=== PATIENT | male | born 1950 | race Caucasian/White ===

== ENCOUNTER 2017-07-04 13:16 | Emergency (ER) | payer MEDICARE ==
[2017-07-04 13:57] LABS: Hematocrit 40.9 % (42.0-52.0); Mean Platelet Volume 7.3 fL (7.4-10.4); White Blood Cell (WBC) Count 6.3 thou/uL (4.8-10.8)
[2017-07-04 14:15] LABS: ALT (SGPT) 21 U/L (8-55); AST (SGOT) 32 U/L (5-34); Alkaline Phosphatase 77 U/L (40-150); Anion Gap 10 mmol/L (10-20); BUN (Urea Nitrogen) 18 mg/dL (8.4-25.7); Bilirubin, Total 0.7 mg/dL (0.2-1.2); CK (CPK) 819 U/L (30-200); Calc. Creatinine Clearance 0 mL/min (70-130); Calcium 8.9 mg/dL (7.8-10.44); Carbon Dioxide 30 mmol/L (23-31); Chloride 99 mmol/L (98-107); Estimated GFR-MDRD Greater than 90; Globulin 2.9 g/dL (2.4-3.5); Protein, Total 6.2 g/dL (5.8-8.1)
[2017-07-04 14:19] LABS: Troponin I Less than 0.010 ng/mL (< 0.028)
[2017-07-04 14:27] LABS: Band 1 % (5-11); Neutrophil 66 % (42-75)
--- NOTE | 2017-07-04 15:35 | RAD ---
FRONTAL VIEW CHEST 07/04/17 INDICATION: Weakness. FINDINGS: There is elevation of the left hemidiaphragm. Linear densities at each lower lung zone indicate atele ctasis. The cardiomediastinal silhouette is accentuated by portable technique. Partially imaged hardw are is seen at the cervical spine/cervicothoracic junction. There is also partially imaged hardware o f the lumbar spine. IMPRESSION: Bilateral atelectasis. POS: [facility]
--- NOTE | 2017-07-25 14:59 | EKG ---
Test Reason : Blood Pressure : / mmHG Vent. Rate : 080 BPM Atrial Rate : 080 BPM P-R Int : 162 ms QRS Dur : 086 ms QT Int : 386 ms P-R-T Axes : 037 -07 -06 degrees QTc Int : 445 ms Normal sinus rhythm Nonspecific ST abnormality Abnormal ECG Confirmed by THONY REYES D.O. ([id number]), supervising editor trailer DAINA LENZ ([id number]) on 07/25/2017 2:59:01 PM Referred By: Confirmed By:THONY REYES D.O.
== END 2017-07-04 15:48 | disposition home or self-care (01) ==
LOC: ERS 13:16
DX: G89.18 Other acute postprocedural pain (principal); M79.641 Pain in right hand; Z86.73 Personal history of transient ischemic attack (TIA), and cerebral infarction without residual deficits; E78.00 Pure hypercholesterolemia, unspecified; F41.9 Anxiety disorder, unspecified; F31.9 Bipolar disorder, unspecified
CPT/HCPCS: 71010; 80053; 82553; 84484; 85025; 87040; 93005

== ENCOUNTER 2017-10-08 13:14 | Outpatient (CLI) | payer MEDICARE ==
--- NOTE | 2017-10-08 15:48 | RAD ---
Three views of the lumbar spine: Date: 10/08/17. COMPARISON: 06/03/16. HISTORY: Low back pain. FINDINGS: There is extensive postoperative hardware involving the lumbar spine which includes bilateral L2, L3, L4, L5, and S1 pedicle screws. Bilateral vertically oriented interlocking rods are seen associated with the L5 and S1 pedicle screws. There is a second set of vertically oriented interlocking rods as sociated with the L2, L3, and L4 pedicle screws bilaterally. There is an intervertebral disk device present at L3-4, L4-5, and L5-S1. The postoperative hardware does not appear significantly changed when compared to the 06/03/16 exam. There is severe anterior wedge compression fracture of L1 with pr ominent anterior loss of vertebral body height, stable. There is disk space narrowing, degenerative end plate change, and vacuum disk formation at L1-2. Stable multilevel intervertebral disk fusion at L2-3 through L5-S1 noted. An incompletely imaged spinal stimulating device is present with a generator on the right and leads e xtending into the region of the lumbar spine, not fully imaged. IMPRESSION: Extensive postoperative change throughout the lumbar spine. Stable severe anterior wedge compression fracture at L1 with prominent L1-2 degenerative change. POS: [facility]
== END 2017-10-08 13:15 | disposition home or self-care (01) ==
LOC: RAD 13:14
PROVIDERS: ATTEND Nurse Practitioner Family
DX: M54.5 Low back pain (principal); S32.010A Wedge compression fracture of first lumbar vertebra, initial encounter for closed fracture; M47.896 Other spondylosis, lumbar region
CPT/HCPCS: 72100

== ENCOUNTER 2017-10-19 09:40 | Outpatient (CLI) | payer MEDICARE ==
--- NOTE | 2017-10-19 16:00 | NM ---
WHOLE BODY BONE SCAN: 10/19/2017 HISTORY: Low back pain. COMPARISON: None. TECHNIQUE: Anterior and posterior whole body imaging obtained following the intravenous administration of 33 mil licuries of technetium 99m labeled MDP. FINDINGS: Areas of photopenia noted at the level of the bilateral knees, suggesting arthroplasties. Degenerati ve type changes overly the right foot and ankle. There is increased radiotracer activity in the region of the distal right radius, which may represent prior fracture. There is physiologic activity within the kidneys and the urinary bladder. There are ill defined areas of increased radiotracer activity within the lumbar spine. Radiographs o f the lumbar spine, performed 10/08/2017, demonstrated extensive severe degenerative change and multi level postoperative change within the lumbar spine. There is a focal area of increased radiotracer activity at the thoracolumbar junction, which correlat es with a prominent anterior wedge compression fracture, seen on the 10/08/2017 radiographs. This fr acture is not significantly changed when compared to a CT, performed 07/14/2016. There is a vague ar ea of increased radiotracer activity within the mid thoracic spine, in the T7-T8 region, nonspecific. There is a focus of increased radiotracer activity seen posteriorly, on the right, overlying the faustina on of the right 6th rib. IMPRESSION: 1. Radiotracer activity within the lumbar spine, suggesting a combination of a remote fracture and p ostoperative/degenerative change. 2. Focus of radiotracer activity overlies the mid thoracic spine. There is also a nonspecific focus of radiotracer activity overlying a posterior right rib/scapula. Recommend CT examination of the chest, with the patient's right arm down, to further evaluate the are a of radiotracer activity within the mid thoracic spine and overlying a posterior right rib. CODE T POS: [facility]
== END 2017-10-19 09:41 | disposition home or self-care (01) ==
LOC: NM 09:40
PROVIDERS: ATTEND Nurse Practitioner Family
DX: M54.5 Low back pain (principal); Z98.890 Other specified postprocedural states; M47.896 Other spondylosis, lumbar region
CPT/HCPCS: 78306; A9503

== ENCOUNTER 2017-10-27 09:33 | Observation (INO) | payer MEDICARE, OTHER ==
[2017-10-27 10:04] LABS: #Eosinphils 0.1 thou/uL (0.0-0.7); #Lymphocytes 2.2 thou/uL (1.20-3.40); #Monocytes 0.8 thou/uL (0.11-0.59); #Neutrophils 4.4 thou/uL (1.40-6.50); %Basophils 0.5 % (0.0-1.0); %Eosinophils 0.7 % (0.0-10.0); %Monocytes 10.9 % (0.0-10.0); %Neutrophils 58.8 % (42.0-75.0); Hemoglobin 15.2 g/dL (14.0-18.0); Mean Corpuscular HGB CONC 31.1 g/dL (32.0-36.0); Mean Corpuscular Hemoglobin 28.7 pg (27.0-31.0); Mean Corpuscular Volume 92.3 fl (80.0-94.0); Mean Platelet Volume 7.4 fL (7.4-10.4); Platelet Count 167 thou/uL (130-400); RBC Distribution Width 13.4 % (11.5-14.5); Red Blood Cell (RBC) Count 5.31 mill/uL (4.70-6.10); White Blood Cell (WBC) Count 7.5 thou/uL (4.8-10.8)
[2017-10-27 10:34] LABS: ALT (SGPT) 32 U/L (8-55); AST (SGOT) 23 U/L (5-34); Albumin 4.2 g/dL (3.4-4.8); Alkaline Phosphatase 100 U/L (40-150); Anion Gap 12 mmol/L (10-20); BUN (Urea Nitrogen) 18 mg/dL (8.4-25.7); Bilirubin, Total 0.9 mg/dL (0.2-1.2); CK (CPK) 47 U/L (30-200); Calc. Creatinine Clearance 0 mL/min (70-130); Calcium 9.9 mg/dL (7.8-10.44); Carbon Dioxide 31 mmol/L (23-31); Chloride 100 mmol/L (98-107); Estimated GFR-MDRD 88; Globulin 2.7 g/dL (2.4-3.5); Glucose 116 mg/dL (80-115); Lipase 19 U/L (8-78); Potassium 4.5 mmol/L (3.5-5.1); Protein, Total 6.9 g/dL (5.8-8.1); Sodium 138 mmol/L (136-145)
[2017-10-27 10:35] LABS: CKMB 1.6 ng/mL (0-6.6); Troponin I Less than 0.010 ng/mL (< 0.028)
--- NOTE | 2017-10-27 10:53 | RAD ---
FRONTAL VIEW CHEST: INDICATIONS: Chest pain. COMPARISON: 07/04/2017 FINDINGS: There is a mild prominence of the right hilar region. The cardiac silhouette is normal in size. Ext rinsic artifacts limit detail. An electronic device overlies the thoracic spine. The chest is otherwise similar to 07/04/2017. IMPRESSION: Mild prominence of the right hilum. This could relate to accentuated vasculature. Recommend followu p with a dedicated two view chest for continued assessment. POS: [facility]
--- NOTE | 2017-10-27 12:09 | CT ---
CT CHEST WITH CONTRAST: HISTORY: Abnormal appearance of bone scan. Low back pain. COMPARISON: Bone scan from 10/19/2017. TECHNIQUE: Multiple contiguous axial images were obtained in a CT of the chest with contrast. Coronal reformats were performed. FINDINGS: There is a nonexpansile area of sclerosis in the right lateral sixth rib. This likely corresponds to the bone scan abnormality. This is nonspecific and could represent a healing rib fracture. No abno rmality is seen in the right scapula. The heart is normal in size without focal cardiac abnormality. No hilar or mediastinal lymphadenopat hy is seen. Atelectasis is seen in the left lung base. No pneumothorax or pleural effusion is seen. No suspicio us pulmonary mass is present. Degenerative changes and post surgical changes are seen in the spine. A spinal stimulation device is seen in the mid thoracic spine. There is diffuse fatty infiltration of the liver with fatty sparing adjacent to the gallbladder. The other visualized subdiaphragmatic structures are unremarkable. IMPRESSION: 1. The abnormality on the bone scan represents a sclerotic, nonspecific focus in the right sixth rib . Recommended a follow-up exam in six months to ensure stability and evaluate for resolution of a po ssible healing rib fracture. 2. Fatty liver. POS: [facility]
[2017-10-27] MEDS ORDERED: Famotidine 20 MG TAB ONE (13:07)
--- NOTE | 2017-10-27 13:20 | HP ---
DATE OF ADMISSION: 10/27/2017 REASON FOR ADMISSION: Chest pain. HISTORY OF PRESENT ILLNESS: This is a pleasant 67-year-old gentleman with a history of chronic back pain, hypertension, and anxiety, presents with a several day history of chest pain. This waxed and w aned over the last several days. He denies any associated shortness of breath with that or radiation to his arms and jaw. He did usually take nitroglycerin for that with relief of symptoms; however, shawna rizo did not have any nitro. Therefore, he had to come to the hospital. He does have a history of norm al catheterization by the patient's description [address] Diez. PAST MEDICAL HISTORY: 1. Anxiety disorder. 2. Chronic back pain. 3. Depression. 4. History of normal catheterization years ago. 5. History of hemorrhoids, scoped by Dr. Santillan in 2014. 6. Osteoarthritis. 7. Allergic rhinitis. PAST SURGICAL HISTORY: History of back surgery years ago and history of back stimulator. ALLERGIES: MORPHINE, LYRICA and COUGH MEDS. MEDICATIONS: 1. Isosorbide 30 mg every day. 2. Eszopiclone 30 mg every night. 3. Diazepam 10 mg every day p.r.n. 4. Phenergan p.r.n. 5. Fentanyl patch 50 mcg every 3 days. 6. Morphine IR 30 mg q.i.d. 7. Dorzolamide 20 mg at bedtime. FAMILY HISTORY: Noncontributory. SOCIAL HISTORY: Quit smoking several years ago, he did only smoke for 3 years. Does not drink alcoh ol. REVIEW OF SYSTEMS: GENERAL: No weight gain or loss, no weakness or fatigue, no fever or chills. HE ENT: No diplopia, amaurosis fugax, tinnitus, sore throat or hoarseness. CARDIOVASCULAR: See histor y of present illness. PULMONARY: No PE, cough, or hemoptysis. GASTROINTESTINAL: No GI bleed, cons tipation, diarrhea. GENITOURINARY: No dysuria, nocturia, oliguria or polyuria. ENDOCRINE: No poly phagia, polydipsia or heat or cold intolerance. MUSCULOSKELETAL: Admits to arthralgias. No lupus o r myopathy. NEUROLOGIC: No history of TIA or seizure. All systems are negative. PHYSICAL EXAMINATION: GENERAL: Pleasant gentleman who appears in no acute distress. VITAL SIGNS: Stable. HEENT: PERRLA. Sclerae not icteric with no arcus senilis or xanthelasma. NECK: Supple with no increased JVP or carotid bruit. Carotid had good upstroke, no thyromegaly. COR: Regular rate and rhythm. CHEST: Symmetrical. Clear to auscultation and percussion. ABDOMEN: Soft, nontender with normoactive bowel sounds. There is no bruit or organomegaly. EXTREMITIES: No edema or cyanosis. He had palpable pedal pulses. SKIN: There is no evidence of ulcers, lesion, or rash. NEUROLOGIC: He is awake, alert, and oriented to person, place, and time. IMAGING DATA: His cardiac enzymes normal. EKG was hard to interpret secondary to back stimulator. ASSESSMENT: 1. Chest pain. 2. Chronic back pain. 3. History of back surgery. 4. Depression. 5. Anxiety. 6. Multiple medical problems. PLAN: The patient will be admitted where we will keep n.p.o. after midnight. [facility] in consultation for further testing. The patient verbalized understanding. All questions answered to satisfaction. This is SPENCER Omalley dictating for Jonny Yeboah M.D.
[2017-10-27 13:48] LABS: Troponin I Less than 0.010 ng/mL (< 0.028)
[2017-10-27] MEDS ORDERED: Nitroglycerin 0.4 MG TAB (25 Tab Bottle) SL PRN (14:42)
[2017-10-27] MEDS ORDERED: Acetaminophen 325 MG TAB PO PRN ×2 (14:45→20:35)
[2017-10-27] MEDS ORDERED: Ondansetron ODT 4 MG TAB SL PRN (14:45)
[2017-10-27] MEDS ORDERED: Ondansetron HCl/PF 4 MG/2 ML Vial IVP PRN (14:45)
[2017-10-27] MEDS ORDERED: Mag-Al 1200 mg/1200 mg/30 ML UDCUP PO SCH (14:45)
[2017-10-27] MEDS ORDERED: ISOVUE-370 76%-LOCM 1 ML ONE (14:46)
[2017-10-27 17:11] LABS: Troponin I Less than 0.010 ng/mL (< 0.028)
[2017-10-27] MEDS ORDERED: Zolpidem Tartrate 5 MG TAB PO PRN (17:40)
[2017-10-27] MEDS ORDERED: Melatonin 3 MG TAB PO PRN (17:41)
[2017-10-27] MEDS ORDERED: Morphine IR Tab 15 MG TAB PO PRN (17:43)
[2017-10-27] MEDS ORDERED: Sucralfate 1 GM TAB PO SCH (21:00)
--- NOTE | 2017-10-28 02:00 | CON ---
DATE OF CONSULTATION: 10/27/2017 INDICATION FOR CONSULTATION: A 67-year-old gentleman with a history of chest pain in the past. He h as undergone two previous cardiac catheterizations was in 2007 and 2011 or 2012 and was told he had n ormal coronaries. This was performed by Dr. Diez at [facility]. He has had multiple problems with GI reflux in the past. He describes the pain recently as having very sharp s tabbing chest pains which were very intense, radiating up to the back of his neck. He said this morn ing they were much worse. He came to the emergency room after he has taken aspirin and nitroglycerin . His pain had actually resolved. He has lost some weight in the past, but now has gained some of t his back. He has been told he has significant reflux and has been on medications for this. It sound s as if this may be some esophageal problem more than a cardiac problem if he has had a recent cardia c catheterization that was unremarkable. Certainly in his age having a normal cast 3 years ago, speedy d not speak as far as having coronary artery disease, especially since he has had similar symptoms in the past, has been worked up and has not been found to have any significant coronary artery disease. He has not had a recent stress test and this may be something that we can think about, we should al so perform stress testing to rule out evidence for underlying ischemia. His EKG was unremarkable. T here was no evidence of ischemia on the EKG now and his cardiac enzymes are negative. PAST MEDICAL HISTORY: Significant for degenerative joint disease, multiple back surgeries, neck surg eries. He has had multiple joint surgeries. He has had total knee replacements bilaterally, right s houlder surgery, bilateral thumb and wrist surgeries. He has RSD. He has had a history of right mali st wall cyst removal. He has Peyronie's disease for which now he has prosthesis. He has sleep apnea , but does not wear a mask. SOCIAL HISTORY: He is . No alcohol or tobacco abuse at this time. FAMILY HISTORY: Noncontributory. MEDICATIONS PRIOR TO ADMISSION: Included Carafate, albuterol, Dexilant, morphine tablet, Celexa, Salud ium, melatonin and Imdur. ALLERGIES: He is allergic to pregabalin. REVIEW OF SYSTEMS: He complains of dyspepsia, shortness of breath. He wears glasses, has decreased hearing. He has multiple joint problems. Otherwise, review of systems is unremarkable except what w as noted in the history of present illness. This is a 12-point review of systems. PHYSICAL EXAMINATION: GENERAL: Reveals a well-developed, well-nourished gentleman. VITAL SIGNS: Blood pressure 140/89, heart rate is 60 and regular. He is afebrile, respiratory rate 20. HEENT: Shows head to be normocephalic, atraumatic. Carotid pulses are present. There were no bruit s. There is no JVD. The thyroid is not enlarged. Oral mucosa was pink and moist. CHEST: Clear to auscultation without rales, rhonchi or wheezing. CARDIOVASCULAR: Exam reveals a regular rate and rhythm, normal S1, S2. There is no S3, S4. There w ere no significant murmurs, heaves, thrills, bruits or rubs. ABDOMEN: Soft and nontender with positive bowel sounds. No organomegaly or masses are noted. Femor al pulses are present. EXTREMITIES: Show no clubbing, cyanosis or edema. He does have some wasting of the muscles of the l eft hand which was noted both in the thenar or hypothenar eminence. Otherwise, I do not see any sign ificant edema. Pedal pulses are present. NEUROLOGIC: The patient appears to be relatively intact except for continued pain. EKG is unremarkable for any acute problems. He has normal sinus rhythm. LABORATORY DATA: Shows cardiac enzymes to be negative. Blood sugar is 116, potassium is 4.5, creati nine 0.87. Hemoglobin is 15.2. IMPRESSION: A 67-year-old gentleman with chest pain, which is somewhat atypical. He describes as be ing sharp, stabbing pain. He has had 2 cardiac catheterizations in the past, both which are unremark able according to the patient. We will try to obtain those records from Dr. Diez's office. Mikhail w yanely just advise him to have a stress testing as a more definitive evaluation, but this can be perfor med with nuclear medicine to rule out evidence of underlying ischemia. If there are any significant changes, then we would suggest a repeat cardiac catheterization despite a normal catheterization 3 ye ars ago. Otherwise, we would continue his present medications. We will be more than happy to follow the patient with you throughout his hospital course.
[2017-10-28] MEDS ORDERED: Diazepam 5 MG TAB PO PRN (03:17)
[2017-10-28] MEDS ORDERED: Acetaminophen 325 MG TAB PO PRN (08:02)
[2017-10-28] MEDS ORDERED: Aspirin 325 MG TAB PO SCH (09:00)
[2017-10-28] MEDS ORDERED: Pantoprazole 40 MG VIAL IVP SCH (09:00)
[2017-10-28] MEDS ORDERED: Sucralfate 1 GM TAB PO SCH (09:00)
[2017-10-28] MEDS ORDERED: Regadenoson 0.4 MG/5 ML SYRINGE ONE (11:05)
--- NOTE | 2017-10-28 11:06 | PDOC.CTH ---
Cardiology Progress Note - Subjective The pt seen and examined. No overnight events. No cardiac complaints. Stress test was done this AM and the result is pending at this time. - Objective Vital Signs Temp Pulse Resp BP BP Pulse Ox 10/28/17 08:00 98.2 F 58 L 16 10/28/17 07:25 98.2 F 58 L 16 134/85 92 L 10/28/17 03:12 97.8 F 76 28 H 127/97 H 94 L 10/27/17 23:43 116/86 Weight 186 lb 4.8 oz 10/27/17 10/28/17 10/29/17 06:59 06:59 06:59 Intake Total 600 Balance 600 - Physical Examination General/Neuro: alert & oriented x3 Neck: no JVD present Lungs: CTA Heart: RRR Abdomen: soft Extremities: other: (No edema) - Telemetry Telemetry Rhythm: SR - Labs Result Diagrams: 10/27/17 09:55 10/27/17 09:55 Troponin/CKMB CK-MB (CK-2) 1.6 ng/mL (0-6.6) 10/27/17 09:55 Troponin I Less than 0.010 ng/mL (< 0.028) 10/27/17 16:39 - Assessment/Plan 1. CP - stable; Stress test was done this AM and the result is pending at this time; on ASA 325mg daily; cont. monitor on tele 2. GERD - stable with Protonix 40mg IV BID; possible EGD tomorrow per the pt. 3. Sleep Apnea 4. Chronic back pain with stimulator - stable 5. Anxiety/depression - on PRN med; managed by PCP MAR reviewed Review of Systems - Review of Systems Constitutional: reports: no symptoms reported EENTM: reports: no symptoms reported Respiratory: reports: no symptoms reported Cardiac (ROS): reports: no symptoms reported ABD/GI: reports: no symptoms reported : reports: no symptoms reported
[2017-10-28 12:24] VITALS: BP 128/84; TEMP 97.8
--- NOTE | 2017-10-28 13:14 | NM ---
RADIONUCLIDE STRESS AND REST MYOCARDIAL PERFUSION SCAN WITH CT ATTENUATION CORRECTION AND SPECT IMAGI NG LEFT VENTRICULAR WALL MOTION EVALUATION AND EJECTION FRACTION: HISTORY: Chest pain. FINDINGS: Lexiscan protocol was used. There was homogeneous uptake of radiotracer throughout the left ventricu lar myocardium. No focal perfusion defect or reversibility. QGS analysis of gated SPECT images show no focal wall motion abnormalities. Left ventricular ejection fraction is calculated at 65%. IMPRESSION: Normal myocardial perfusion scan. Normal left ventricular ejection fraction. POS: [facility]
--- NOTE | 2017-10-29 14:28 | DIS ---
DATE OF ADMISSION: 10/27/2017 DATE OF DISCHARGE: 10/28/2017 CHIEF COMPLAINT ON ADMISSION: Chest pain. History and physical have previously been dictated, so I will resume from there with hospital course. HOSPITAL COURSE: The patient was placed on telemetry bed where serial cardiac enzymes were pursued. He was kept n.p.o. in case he may need to go to the cardiac cath lab radiology technologist. Cardiology was consulted concerning h is situation. Dr. Mendez saw the patient in consultation, ordered a Cardiolite stress test, which init ially showed artifact from spinal stimulator, but otherwise indeterminate images of ischemia, sinus b radycardia was noted, so we are waiting on the nuclear medicine interpretation of this. Over the nex t 24 hours, he felt much better. He was alert. He had a weekend episode that he thought may have be en set up by [employer]. His cardiac enzymes had returned negative. His exam is unremarkable. It was felt to be atypical chest pain, probably severe GERD with intractable esophagitis. All of that being secondary to chronic pain, but we were ruling out the cardiac ischemia, and the physician practice administrator sa w him on the day of discharge. By then, we received a normal myocardial perfusion scan, such that eir opinion also was that he could be discharged that the chest pain was noncardiac. He is jut ozzy nue to take daily aspirin, continue on the Protonix, and we will do seek an EGD on an outpatient [facility] s to further define the etiology of his substernal chest discomfort. It is felt he might also have s leep apnea, and he has known chronic back pain with a pain stimulator. The patient is discharged in stable condition. DIAGNOSES AT THE TIME OF DISCHARGE: 1. Chest pain, probably severe reflux esophagitis. 2. Chronic back pain with pain stimulator placed. 3. Sleep apnea. 4. Anxiety/depression. The time required to review the chart, examining the patient, answering the patient and his 's qu estions completely, then prepare the chart for discharge including writing the prescriptions for the Protonix, agrees to take the aspirin daily, and we will get a GI consultation for EGD as soon as poss ible, and thus changed the Protonix to Dexilant 60 mg b.i.d. He was already taking something like th at once a day and obviously has been ineffective, the time required to reconcile all his medications and complete the previous task came to 30 minutes.
--- NOTE | 2017-10-31 21:29 | EKG ---
Test Reason : Blood Pressure : / mmHG Vent. Rate : 081 BPM Atrial Rate : 040 BPM P-R Int : 000 ms QRS Dur : 074 ms QT Int : 392 ms P-R-T Axes : 000 039 065 degrees QTc Int : 455 ms Accelerated Junctional rhythm ST elevation, consider early repolarization, pericarditis, or injury Abnormal ECG Artifact from stimulator Confirmed by JEANCARLOS HAN, JUAN JOSÉ ([id number]), supervising editor trailer DAINA LENZ ([id number]) on 10/31/2017 9:29:31 PM Referred By: Confirmed By:JUAN JOSÉ ARSHAD MD
--- NOTE | 2017-11-23 15:14 | STRESS ---
Acquisition Time: 2017-10-28 09:16:03 Total Exercise Time: 00:01:00 Test Indications: CHEST PAIN Medications: Protocol: LEXISCAN Max HR: 086 BPM 55% of Pred: 155 BPM Max BP: 148/090 mmHG Max Work Load: 1.0 METS RESTING ECG: SINUS BRADYCARDIA AT 57 BPM SYMPTOMS: DYSPNEA NORMAL BP RESPONSE ECTOPY: NONE ECG STRESS: NO SIGNIFICANT CHANGES INTERPRETATION: INDETERMINATE ECG/AWAIT NUCLEAR IMAGES FOR DEFINITIVE DIAGNOSIS COMMENTS: ARTIFACT FROM SPINAL STIMULATOR Confirmed by PATITO GALINDO ELLEN ([id number]) on 11/23/2017 3:14:09 PM Referred By: MD Timothy IZAGUIRRE Confirmed By:AAMIR GALINDO PA-C
== END 2017-10-28 14:20 | disposition home or self-care (01) ==
LOC: ERS 09:33 → 2SW 12:16 → INTOOBSV 12:16
PROVIDERS: ADMIT Specialist; ATTEND Specialist
DX: Z88.8 Allergy status to other drugs, medicaments and biological substances; M19.90 Unspecified osteoarthritis, unspecified site; Z96.653 Presence of artificial knee joint, bilateral; G47.30 Sleep apnea, unspecified; Z98.890 Other specified postprocedural states; K21.9 Gastro-esophageal reflux disease without esophagitis; Z79.891 Long term (current) use of opiate analgesic; I10 Essential (primary) hypertension; R07.9 Chest pain, unspecified; N48.6 Induration penis plastica; Z79.899 Other long term (current) drug therapy; F41.9 Anxiety disorder, unspecified; F32.9 Major depressive disorder, single episode, unspecified; G90.50 Complex regional pain syndrome I, unspecified
CPT/HCPCS: 71045; 71260; 78452; 80053; 82550; 82553; 82565; 83690; 84484 ×2; 85025; 93005; 93017; 94760; 96374; 99285; A9500; G0378; 36415; A4216; C9113; J2785

== ENCOUNTER 2017-10-30 03:31 | Inpatient (IN) | payer MEDICARE ==
[2017-10-30 04:24] LABS: #Eosinphils 0.1 thou/uL (0.0-0.7); #Monocytes 0.8 thou/uL (0.11-0.59); #Neutrophils 10.7 thou/uL (1.40-6.50); %Basophils 0.2 % (0.0-1.0); %Eosinophils 0.6 % (0.0-10.0); %Lymphocytes 7.5 % (21.0-51.0); %Monocytes 6.7 % (0.0-10.0); Hemoglobin 14.4 g/dL (14.0-18.0); Mean Corpuscular Hemoglobin 29.3 pg (27.0-31.0); Mean Corpuscular Volume 88.7 fl (80.0-94.0); Mean Platelet Volume 6.9 fL (7.4-10.4); Platelet Count 137 thou/uL (130-400); RBC Distribution Width 13.2 % (11.5-14.5); Red Blood Cell (RBC) Count 4.93 mill/uL (4.70-6.10); White Blood Cell (WBC) Count 12.6 thou/uL (4.8-10.8)
[2017-10-30 04:41] LABS: Bilirubin Negative (Negative); Blood, Urine Negative (Negative); Clarity CLEAR (Clear); Glucose, Urine (Dipstick) Negative (Negative); Leukocyte Negative (Negative); Nitrite Negative (Negative); Protein, Urine (Dipstick) Negative (Neg-Trace); Specific Gravity, Urine 1.015 (1.002-1.036); pH, Urine 7.5 (5.0-9.0)
[2017-10-30 04:43] LABS: ALT (SGPT) 34 U/L (8-55); AST (SGOT) 26 U/L (5-34); Albumin 3.4 g/dL (3.4-4.8); Alkaline Phosphatase 87 U/L (40-150); Anion Gap 12 mmol/L (10-20); BUN (Urea Nitrogen) 17 mg/dL (8.4-25.7); Bilirubin, Total 1.4 mg/dL (0.2-1.2); Calc. Creatinine Clearance 0 mL/min (70-130); Calcium 7.7 mg/dL (7.8-10.44); Carbon Dioxide 26 mmol/L (23-31); Chloride 101 mmol/L (98-107); Estimated GFR-MDRD Greater than 90; Globulin 2.2 g/dL (2.4-3.5); Glucose 87 mg/dL (80-115); Lipase 13 U/L (8-78); Potassium 3.6 mmol/L (3.5-5.1); Protein, Total 5.6 g/dL (5.8-8.1); Sodium 135 mmol/L (136-145)
[2017-10-30] MEDS ORDERED: Ketorolac Tromethamine 30 MG/ML VIAL ONE (05:03)
[2017-10-30 05:04] LABS: CKMB 1.6 ng/mL (0-6.6); Troponin I Less than 0.010 ng/mL (< 0.028)
[2017-10-30] MEDS ORDERED: Ondansetron HCl/PF 4 MG/2 ML Vial ONE (05:06)
[2017-10-30] MEDS ORDERED: Pantoprazole 40 MG VIAL ONE (05:13)
[2017-10-30] MEDS ORDERED: Fleet Enema 133 ML BOT PR SCH (05:15)
--- NOTE | 2017-10-30 08:06 | RAD ---
CHEST 1 VIEW ABDOMEN 2 VIEWS: Date: 10/30/17 HISTORY: Abdominal pain. Nausea and vomiting. FINDINGS: Cardiac silhouette and pulmonary vasculature are unremarkable. Patchy infiltrates are present at the lung bases, left greater than right. There is no lobar consolidation or evidence of free subdiaphragm atic gas. Postoperative changes of the cervical spine are partially visualized. Dorsal column stimula tor leads overlie the thoracic spine. A large amount of stool is apparent throughout the colon and rectum. No differential air fluid levels or evidence of free subdiaphragmatic gas. Postoperative changes lumbar spine. Dorsal column stimulat or leads ascend to the thoracic spine. IMPRESSION: 1. Constipation. 2. Left lung base infiltrate. Clinical correlation regarding other signs and symptoms of left basila r pneumonitis is required. POS: [facility]
[2017-10-30] MEDS ORDERED: Vancomycin HCl 1.5 GM in Sodium Chloride 0.9% 250 ML 300 ML IVPB SCH (08:30)
--- NOTE | 2017-10-30 09:24 | CT ---
PRELIMINARY REPORT/[facility]/EMERGENTY AFTER-HOURS PROCEDURE CT Abdomen and Pelvis With Intravenous Contrast CLINICAL HISTORY: 67 years old, male; Signs and symptoms; Nausea and vomiting; Additional info: M67 presents to the ed via ems with C/O n/v, since 1999 last night. Ems reports giving pt 700 ml ns and 8 mg zofran. Pt paul es fever, chills, or diarrhea. He reports constipation, lbm x4 days ago. He reports last year he had a similar event and lost over 40 pounds. Pt see's [address]. Tyler (gi). HX TIA, acid reflux. TECHNIQUE: Axial computed tomography images of the abdomen and pelvis with intravenous contrast. COMPARISON: No relevant prior studies available. FINDINGS: Lung bases: Mild basilar air space disease bilaterally left slightly greater than right. Followup. ABDOMEN: Liver: Severe fatty infiltration of the liver. Fatty infiltration of the liver with areas of fatty sp aring. Gallbladder and bile ducts: Possible gallstones Pancreas: Unremarkable. Spleen: -Small accessory spleen is present. Adrenals: Unremarkable. No mass. Kidneys and ureters: Unremarkable. No solid mass. No hydronephrosis. Stomach and bowel: -Large amount of stool throughout the large bowel. Appendix: -The appendix is normal. PELVIS: Bladder: Unremarkable. No mass. Reproductive: Penile implant ABDOMEN and PELVIS: Intraperitoneal space: No free fluid within the pelvis or within the dependent portions of the perito neum. No free air. Bones/joints: Operative changes in the lumbar spine including surgical plate and pedicle screws No ac eri fracture. No dislocation. Soft tissues: Unremarkable. Vasculature: Unremarkable. No abdominal aortic aneurysm. Lymph nodes: Unremarkable. No enlarged lymph nodes. Other findings: No acute intra-abdominal process. No inflammatory process. No obstruction. IMPRESSION: 1. No acute intra-abdominal process. No inflammatory process. No obstruction. 2. Severe fatty infiltration of the liver. 3. -The appendix is normal. 4. -Large amount of stool throughout the large bowel. 5. Mild basilar air space disease bilaterally left slightly greater than right. Followup. Likely atelectasis. Correlate. 6. Fatty infiltration of the liver with areas of fatty sparing. Thank you for allowing us to participate in the care of your patient. Dictated and Authenticated by: Kelvin Morales MD 10/30/2017 7:26 AM Central Time ([place] & [place]) FINAL REPORT CT ABDOMEN AND PELVIS WITH IV AND ORAL CONTRAST: DATE: 10/30/17. TIME: Performed on an emergency basis at 0644 hours. HISTORY: Abdominal pain. Nausea and vomiting. COMPARISON: 11/12/15. FINDINGS: Findings agree with the preliminary report from [facility]. No evidence of bowel obstruction. Hepatosteatosis is confirmed. Patchy bibasilar lung infiltrates are present. Clinical correlation regarding other signs and symptoms of bibasilar pneumonitis is required. POS: [facility]
[2017-10-30] MEDS ORDERED: Cefepime 2 GM/10 ML SYR ONE (10:34)
[2017-10-30] MEDS ORDERED: Ondansetron ODT 4 MG TAB SL PRN (11:43)
[2017-10-30] MEDS ORDERED: Acetaminophen 325 MG TAB PO PRN ×2 (11:43→11:57)
[2017-10-30] MEDS ORDERED: Ondansetron HCl/PF 4 MG/2 ML Vial IVP PRN ×2 (11:43→11:55)
[2017-10-30 11:53] VITALS: BMI 29.8
[2017-10-30] MEDS: Sodium Chloride 0.9% 1,000 ML IV SCH (13:02)
[2017-10-30] MEDS: cefTRIAXone\\ROCEPHIN 1 GM, Syringe 0.4 ML in Sterile Water 9.6 ML SLOW IVP SCH (13:50)
[2017-10-30] MEDS ORDERED: ISOVUE-370 76%-LOCM 1 ML ONE (14:24)
[2017-10-30] MEDS ORDERED: Iopamidol 370 76% 50 ML VIAL FS ONE (14:24)
[2017-10-30] MEDS: Albuterol Sulfate 2.5 mg/3 ml Neb NEB SCH ×3 (15:34→21:41)
[2017-10-31] MEDS: Sodium Chloride 0.9% 1,000 ML IV SCH (01:17)
[2017-10-31] MEDS: Albuterol Sulfate 2.5 mg/3 ml Neb NEB SCH ×6 (01:51→22:15)
[2017-10-31 05:18] LABS: #Eosinphils 0.1 thou/uL (0.0-0.7); #Lymphocytes 1.3 thou/uL (1.20-3.40); #Monocytes 0.8 thou/uL (0.11-0.59); %Basophils 0.1 % (0.0-1.0); %Lymphocytes 16.2 % (21.0-51.0); %Monocytes 10.3 % (0.0-10.0); %Neutrophils 72.5 % (42.0-75.0); Hemoglobin 13.3 g/dL (14.0-18.0); Mean Corpuscular HGB CONC 32.7 g/dL (32.0-36.0); Mean Corpuscular Hemoglobin 29.5 pg (27.0-31.0); Mean Corpuscular Volume 90.2 fl (80.0-94.0); Mean Platelet Volume 7.3 fL (7.4-10.4); Platelet Count 123 thou/uL (130-400); RBC Distribution Width 13.2 % (11.5-14.5); Red Blood Cell (RBC) Count 4.51 mill/uL (4.70-6.10); White Blood Cell (WBC) Count 8.2 thou/uL (4.8-10.8)
[2017-10-31 05:33] LABS: ALT (SGPT) 25 U/L (8-55); AST (SGOT) 18 U/L (5-34); Albumin 3.2 g/dL (3.4-4.8); Alkaline Phosphatase 76 U/L (40-150); Anion Gap 8 mmol/L (10-20); BUN (Urea Nitrogen) 8 mg/dL (8.4-25.7); Bilirubin, Total 1.2 mg/dL (0.2-1.2); Calc. Creatinine Clearance 120 mL/min (70-130); Calcium 8.3 mg/dL (7.8-10.44); Carbon Dioxide 28 mmol/L (23-31); Chloride 107 mmol/L (98-107); Estimated GFR-MDRD Greater than 90; Globulin 2.1 g/dL (2.4-3.5); Glucose 96 mg/dL (80-115); Potassium 3.7 mmol/L (3.5-5.1); Protein, Total 5.3 g/dL (5.8-8.1); Sodium 139 mmol/L (136-145)
--- NOTE | 2017-10-31 08:02 | RAD ---
CHEST 1 VIEW: Date: 10/31/17 HISTORY: Pneumonia. Follow-up. COMPARISON: 10/30/17. FINDINGS: Cardiac silhouette is magnified by projection. Pulmonary vasculature is upper limits of normal. Media stinum is midline with dorsal column stimulator leads. Infiltrate at the left base has progressed somewhat. Patchy infiltrate with linear atelectatic compon ent at the right base has developed. Upper lobes are clear. alarm security or surveillance monitor leads overlie the chest. IMPRESSION: Interval worsening of bibasilar infiltrates. POS: [facility]
[2017-10-31] MEDS ORDERED: Morphine ER 30 MG TAB PO PRN (08:18)
[2017-10-31] MEDS ORDERED: Calcium Carbonate 500 MG ChewTAB PO PRN (08:22)
--- NOTE | 2017-10-31 08:22 | PRG ---
DATE OF SERVICE: 10/31/2017 SUBJECTIVE: The patient did not have a good night. His back was hurting. His home medications were not resumed. He states he is not coughing as much and he just now started drinking liquids this mor ayesha. PHYSICAL EXAMINATION: GENERAL: Upon evaluation, he is awake, alert, and oriented to person, place and time. VITAL SIGNS: His blood pressure is 114/70, pulse 60, respirations 18. He is afebrile. NECK: Supple with no increased JVP or carotid bruit. Carotid had good upstroke with no thyromegaly. COR: Regular rate and rhythm. CHEST: Symmetrical. Few bibasilar crackles. ABDOMEN: Soft, nontender with normoactive bowel sounds. No bruit or organomegaly. EXTREMITIES: No edema or cyanosis. Palpable pedal pulses. SKIN: There is no evidence of ulceration, lesion, or rash. NEUROLOGIC: He is awake, alert, and oriented to person, place, and time. LABORATORY DATA: His white blood cell is 8.2. His H&H is 13.3 and 40.7. His platelet count is 123. X-RAY FINDINGS: His chest x-ray is pending. ASSESSMENT: 1. Hospital-acquired pneumonia. 2. Chronic back pain with back stimulator, on morphine. 3. Recent history of noncardiac chest pain. 4. Anxiety. 5. Depression. PLAN: We will resume the patient's home medications. We will cut his IV fluids down to KVO. We timbo l continue the same current medication. I have also encouraged the patient to get out of bed today a nd sit in the chair. Hopefully, the patient will be able to go home in the next 1-2 days. The patie nt verbalized understanding. All questions answered to satisfaction. This is SPENCER Omalley dictating for Dr. Jonny Yeboah.
[2017-10-31] MEDS ORDERED: Zolpidem Tartrate 5 MG TAB PO PRN (08:28)
[2017-10-31] MEDS ORDERED: Melatonin 3 MG TAB PO PRN (08:29)
[2017-10-31] MEDS ORDERED: VORTIOXETINE HYDROBROMIDE 20 MG PO SCH (09:00)
[2017-10-31] MEDS: Sucralfate 1 GM/10 ML UDCUP PO SCH ×2 (09:06→21:01)
[2017-10-31] MEDS: Docusate 100 MG CAP PO SCH ×2 (09:06→21:01)
[2017-10-31] MEDS: Citalopram 20 MG TAB PO SCH (09:06)
[2017-10-31] MEDS: Morphine IR Tab 15 MG TAB PO PRN (09:50)
[2017-10-31] MEDS: cefTRIAXone\\ROCEPHIN 1 GM, Syringe 0.4 ML in Sterile Water 9.6 ML SLOW IVP SCH (14:01)
--- NOTE | 2017-10-31 19:54 | EKG ---
Test Reason : Blood Pressure : / mmHG Vent. Rate : 107 BPM Atrial Rate : 107 BPM P-R Int : 172 ms QRS Dur : 086 ms QT Int : 350 ms P-R-T Axes : 053 003 017 degrees QTc Int : 467 ms Sinus tachycardia Possible Left atrial enlargement Nonspecific ST abnormality Abnormal ECG Confirmed by THONY REYES D.O. ([id number]), development editor DAINA LENZ ([id number] on 10/31/2017 7:54:25 PM Referred By: Confirmed By:THONY REYES D.O.
[2017-10-31] MEDS: Senokot 8.6 MG TAB PO SCH (21:01)
[2017-11-01] MEDS: Albuterol Sulfate 2.5 mg/3 ml Neb NEB SCH ×6 (02:18→22:17)
[2017-11-01] MEDS: Citalopram 20 MG TAB PO SCH (08:44)
[2017-11-01] MEDS: Sucralfate 1 GM/10 ML UDCUP PO SCH ×2 (08:44→22:06)
[2017-11-01] MEDS: Sodium Chloride 0.9% 1,000 ML IV SCH ×2 (08:45→22:08)
[2017-11-01] MEDS: Docusate 100 MG CAP PO SCH ×2 (08:45→20:09)
[2017-11-01] MEDS ORDERED: guaiFENesin ER 600 MG TAB PO SCH (11:00)
--- NOTE | 2017-11-01 11:19 | HP ---
REASON FOR ADMISSION: Nausea, vomiting, and shortness of breath. HISTORY OF PRESENT ILLNESS: This is a 67-year-old gentleman with history of chronic back pain, on mo rphine, and also history of back stimulator, was just in the hospital roughly 2 weeks ago at that [facility] e he presented with chest pain. He was seen by Cardiology and a stress test was obtained, which was unremarkable. He was felt like his chest pain was noncardiac in nature and he was later sent home. He presents now with a 2-day history of increasing shortness of breath, cough, and generalized weakne ss. He has also been having some nausea and vomiting. He presented to the emergency room where he w as found to be tachypneic on evaluation, he was placed on oxygen at 2 liters. Also, he had abdomen a nd pelvis CT scan and was found to have left lower pneumonia and constipation. He was admitted to [facility] for pneumonia for further treatment. PAST MEDICAL HISTORY: 1. Chronic back pain, on morphine, and history of back stimulator. 2. History of angiogram roughly 3 years ago, at that time, it was normal by Dr. Diez. He also had a recent stress test that was normal. 3. Anxiety disorder. 4. Depression. 5. Hemorrhoids. 6. Osteoarthritis. 7. Allergic rhinitis. PAST SURGICAL HISTORY: He has history of back surgery and back stimulator. ALLERGIES: MORPHINE, LYRICA, and COUGH MEDICATIONS. MEDICATIONS: Unknown. FAMILY HISTORY: Noncontributory. SOCIAL HISTORY: He quit smoking several years ago. He only smoked for 3 years. He does not drink a lcohol. REVIEW OF SYSTEMS: GENERAL: Admits to weakness, fatigue, no fever or chills. HEENT: No diplopia or amaurosis fugax, tinnitus, sore throat or hoarseness. CARDIOVASCULAR: No chest, arm, or back pain. PULMONARY: See history of present illness. GASTROINTESTINAL: See history of present illness. GENITOURINARY: No dysuria, nocturia, oliguria, polyuria. ENDOCRINE: No polyphagia, polydipsia or heat or cold intolerance. MUSCULOSKELETAL: Admits to arthralgia. No lupus or myopathy. NEUROLOGIC: No history of TIA or seizure. All systems are negative. PHYSICAL EXAMINATION: GENERAL: This is a pleasant gentleman, who appears to be in acute distress. He is on oxygen. His v ital signs are stable. NECK: Supple with no increased JVP or carotid bruit. Carotid had good upstroke with no thyromegaly. COR: Regular rate and rhythm. CHEST: Symmetrical. Clear to auscultation and percussion upper lobes, bibasilar crackles lower lobe s. ABDOMEN: Soft, nontender with normoactive bowel sounds. No bruit or organomegaly. EXTREMITIES: No edema or cyanosis. Palpable pedal pulses. SKIN: There is no evidence of ulceration lesion, or rash. NEUROLOGIC: He is awake, alert, and oriented to person, place, and time. LABORATORY DATA: His white blood cell 12.6, H&H is 14.4 and 43.7 and, platelet count is 137. His so dium is 135. CT of the abdomen and pelvis as numerated above. ASSESSMENT: 1. Pneumonia. 2. History of back pain with back stimulator. 3. History of normal catheterization. 4. Constipation. 5. Anxiety. 6. Depression. PLAN: 1. The patient will be admitted with IV fluids. 2. We will begin antibiotic. 3. We will resume his medications once we know. 4. We will give him of her choice. 5. We will follow up with CBC, CMP, and chest x-ray in the morning. DAVION Omalley-C dictating for Jonny Yeboah M.D.
--- NOTE | 2017-11-01 12:38 | RAD ---
2 VIEW CHEST: Date: 11/01/17 COMPARISON: Frontal view chest from previous day. INDICATION: Pain, left shoulder pain. FINDINGS: Linear density at left lower lung zone is present, which may be related to volume loss. The right jonatan g is clear. There is electronic device overlying the thoracic spinal column again seen. Prior bibasil ar opacities have decreased. Chest is otherwise similar in appearance. IMPRESSION: Mild linear density left lower lung zone indicates atelectasis. Remainder of bibasilar opacities have improved. POS: BERTH
[2017-11-01] MEDS: cefTRIAXone\\ROCEPHIN 1 GM, Syringe 0.4 ML in Sterile Water 9.6 ML SLOW IVP SCH (13:34)
[2017-11-01] MEDS: Morphine IR Tab 15 MG TAB PO PRN ×2 (13:34→20:07)
--- NOTE | 2017-11-01 13:59 | PRG ---
This is DAVION Omalley-Maria Fernanda, dictating for Jonny Yeboah M.D. DATE OF SERVICE: 11/01/2017 SUBJECTIVE: The patient had a decent night. Unfortunately, his chest x-ray is not improved. Pain m edication was written yesterday; however, the patient was very upset as no one gave him any of his pa in medication despite him asking for his pain medicine. Therefore, he took his own morphine that he had in his room. PHYSICAL EXAMINATION: GENERAL: Upon evaluation, he is awake, alert, and oriented to person, place and time. VITAL SIGNS: Blood pressure is 127/90, pulse 70, respiration 20, he is afebrile. NECK: Supple with no increased JVP or carotid bruit. Carotid had good upstroke with no thyromegaly. COR: Regular rate and rhythm. CHEST: Bibasilar crackles. ABDOMEN: Soft and nontender with normoactive bowel sounds. No bruit or organomegaly. EXTREMITIES: No edema or cyanosis. Palpable pedal pulses. SKIN: There is no evidence of ulcer lesion, or rash. NEUROLOGIC: He is awake, alert, and oriented to person, place, and time. LABORATORY DATA: Chest x-ray showed worsening infiltrates. ASSESSMENT: 1. Pneumonia. 2. Chronic back pain. 3. Constipation. 4. Anxiety. 5. Multiple medical problems. PLAN: 1. We will add Levaquin to the medication regime. We will also add Mucinex with the patient take hi s own morphine. 2. I have also spoken with the nurse regarding no one giving his morphine, she did not know anything about it today ?. 3. We will plan for chest x-ray in the morning. 4. Hope the patient will be able to go home in the next 24-48 hours.
[2017-11-01] MEDS: Senokot 8.6 MG TAB PO SCH (20:08)
[2017-11-01] MEDS: guaiFENesin ER 600 MG TAB PO SCH (20:09)
[2017-11-02] MEDS: Albuterol Sulfate 2.5 mg/3 ml Neb NEB SCH ×6 (02:37→22:20)
[2017-11-02] MEDS: Morphine IR Tab 15 MG TAB PO PRN ×3 (07:21→20:26)
[2017-11-02] MEDS: Docusate 100 MG CAP PO SCH ×2 (08:14→20:26)
[2017-11-02] MEDS: guaiFENesin ER 600 MG TAB PO SCH ×2 (08:14→20:26)
[2017-11-02] MEDS: Citalopram 20 MG TAB PO SCH (08:14)
[2017-11-02] MEDS: Sucralfate 1 GM/10 ML UDCUP PO SCH ×2 (08:15→22:12)
[2017-11-02 08:36] LABS: #Eosinphils 0.2 thou/uL (0.0-0.7); #Lymphocytes 1.3 thou/uL (1.20-3.40); #Monocytes 0.6 thou/uL (0.11-0.59); #Neutrophils 2.3 thou/uL (1.40-6.50); %Basophils 0.7 % (0.0-1.0); %Eosinophils 5.2 % (0.0-10.0); %Monocytes 13.7 % (0.0-10.0); %Neutrophils 51.4 % (42.0-75.0); Hemoglobin 14.6 g/dL (14.0-18.0); Mean Corpuscular HGB CONC 31.9 g/dL (32.0-36.0); Mean Corpuscular Hemoglobin 29.5 pg (27.0-31.0); Mean Corpuscular Volume 92.6 fl (80.0-94.0); Mean Platelet Volume 7.7 fL (7.4-10.4); Platelet Count 158 thou/uL (130-400); RBC Distribution Width 13.2 % (11.5-14.5); Red Blood Cell (RBC) Count 4.96 mill/uL (4.70-6.10); White Blood Cell (WBC) Count 4.5 thou/uL (4.8-10.8)
[2017-11-02 08:47] LABS: Anion Gap 12 mmol/L (10-20); BUN (Urea Nitrogen) 6 mg/dL (8.4-25.7); Calc. Creatinine Clearance 111 mL/min (70-130); Calcium 9.4 mg/dL (7.8-10.44); Carbon Dioxide 26 mmol/L (23-31); Chloride 108 mmol/L (98-107); Estimated GFR-MDRD Greater than 90; Glucose 105 mg/dL (80-115); Potassium 5.4 mmol/L (3.5-5.1); Sodium 141 mmol/L (136-145)
[2017-11-02] MEDS: Cefdinir 300 MG CAP PO SCH ×2 (09:20→20:26)
--- NOTE | 2017-11-02 11:47 | RAD ---
RADIOGRAPH CHEST 2 VIEWS: HISTORY: A 67-year-old male with pneumonia. FINDINGS: The thoracic aorta is tortuous and ectatic. There is no evidence of air space density, pneumothorax, or pulmonary edema. There is no cardiomegaly or pleural effusion. There is subsegmental atelectasi s or scar in the left lower lobe. There is no interval change overall since 11/01/17. Again noted are the pedicle screws in the lumbar spine, and ACDF hardware in the cervical spine. Short dorsal colum n stimulator leads enter the midthoracic spine, and ascend a short distance of 2 levels. IMPRESSION: 1) No acute cardiopulmonary findings. 2) Ectasia of thoracic aorta. 3) Dorsal column stimulator leads in the midthoracic spine. sly [] POS: LESA
[2017-11-02] MEDS ORDERED: Diazepam 5 MG TAB PO PRN (16:45)
[2017-11-02] MEDS: Senokot 8.6 MG TAB PO SCH (20:46)
[2017-11-03] MEDS: Morphine IR Tab 15 MG TAB PO PRN ×2 (02:15→09:14)
[2017-11-03] MEDS: Albuterol Sulfate 2.5 mg/3 ml Neb NEB SCH ×3 (02:17→10:58)
[2017-11-03] MEDS: Docusate 100 MG CAP PO SCH (09:15)
[2017-11-03] MEDS: Citalopram 20 MG TAB PO SCH (09:15)
[2017-11-03] MEDS: Cefdinir 300 MG CAP PO SCH (09:15)
[2017-11-03] MEDS: guaiFENesin ER 600 MG TAB PO SCH (09:16)
[2017-11-03 12:36] VITALS: BP 132/74; TEMP 97.6
--- NOTE | 2017-11-03 14:46 | DIS ---
FINAL DIAGNOSES: 1. Community-acquired pneumonia. 2. Anxiety. 3. Chronic back pain. COMPLICATIONS: None. PROCEDURES: None. HOSPITAL COURSE: This is a pleasant gentleman, who presents with symptoms with a cough and shortness of breath. He was found to have a pneumonia. His white blood cell count on admission was 12.6, on dismissal was 4.5. His CMP remained normal except on 11/02/2017. His potassium was 5.4. His UA was negative. The patient was started on IV antibiotics, Mucinex, and breathing treatments. His home edications were resumed. The patient progressed throughout the hospitalization. His chest x-ray did show worsening infiltrates one day and therefore, Levaquin IV had to be added to his medication faustina me; however, the next day he was doing much better. Dr. Yeboah switch him to Levaquin by mouth. The patient tolerated that well. He was breathing okay. He had no cough. His lungs were clearing up. He had no complaints. He will be discharged 11/03/2017 in stable condition. DIET: Regular diet. DISCHARGE MEDICATIONS: 1. Levaquin 500 mg every day for 7 days. 2. Tums every day with breakfast. 3. Celexa 40 mg every day. 4. Dexilant 60 mg b.i.d. 5. Valium 10 mg as needed. 6. Lunesta 3 mg at bedtime. 7. Isosorbide 30 mg every day. 8. Melatonin 5 mg at bedtime. 9. Morphine sulfate 60 mg t.i.d. 10. Carafate 2 grams b.i.d. 11. Trintellix 10 mg every day. FOLLOWUP: He will followup in 1 week or prior to that if he has any complications. The patient verb alized understanding and all questions answered to the patient's satisfaction. This is Hali Ovalles SANITIZER-C dictating for Dr. Jonny Yeboah M.D.
== END 2017-11-03 12:27 | disposition home or self-care (01) | DRG 195 ==
LOC: ERS 03:31 → 2SW 11:14 → OBSVTOIN 11-01 21:33 → T4-A 11-02 12:49
PROVIDERS: ADMIT Specialist; ATTEND Specialist
DX: J18.9 Pneumonia, unspecified organism (principal); F32.9 Major depressive disorder, single episode, unspecified; F41.9 Anxiety disorder, unspecified; G89.29 Other chronic pain; M54.9 Dorsalgia, unspecified; K59.00 Constipation, unspecified; Z87.891 Personal history of nicotine dependence; Z86.73 Personal history of transient ischemic attack (TIA), and cerebral infarction without residual deficits
CPT/HCPCS: 36415; 36416; 71045; 71046; 74022; 74177; 80048; 80053; 81003; 82553; 83605; 83690; 84484; 85025; 87040; 93005; 94640; 94760; 96361; 96365; 96366; 96375; A4216; C9113; J0692; J0696; J1885; J1956; J2405; J3370; J7050; J7611

== ENCOUNTER 2018-04-30 14:13 | Emergency (ER) | payer MEDICARE ==
[2018-04-30] MEDS ORDERED: Ketorolac Tromethamine 60 MG/2 ML VIAL ONE (18:46)
[2018-04-30] MEDS ORDERED: Dexamethasone 10 MG/ML VIAL ONE (18:46)
== END 2018-04-30 19:43 | disposition home or self-care (01) ==
LOC: ERS 14:13
DX: G89.29 Other chronic pain (principal); M54.5 Low back pain; I20.9 Angina pectoris, unspecified; F32.9 Major depressive disorder, single episode, unspecified; Z79.899 Other long term (current) drug therapy; Z86.73 Personal history of transient ischemic attack (TIA), and cerebral infarction without residual deficits
CPT/HCPCS: 96372; J1100; J1885

== ENCOUNTER → 2018-06-14 | Day surgery (SDC) | payer MEDICARE, OTHER | LOC: ENDO/OP 07:37 | PROVIDERS: ATTEND Surgery | DX: K21.9 Gastro-esophageal reflux disease without esophagitis (principal); M19.90 Unspecified osteoarthritis, unspecified site; G90.50 Complex regional pain syndrome I, unspecified; F32.9 Major depressive disorder, single episode, unspecified; I10 Essential (primary) hypertension; Z86.73 Personal history of transient ischemic attack (TIA), and cerebral infarction without residual deficits; Z79.2 Long term (current) use of antibiotics; Z79.899 Other long term (current) drug therapy; Z88.8 Allergy status to other drugs, medicaments and biological substances; Z98.890 Other specified postprocedural states | CPT/HCPCS: 91010 ==

== ENCOUNTER 2018-06-22 07:40 | Outpatient (CLI) | payer MEDICARE ==
--- NOTE | 2018-06-22 14:19 | NM ---
GASTRIC EMPTYING STUDY: History: Reflex without esophagitis. Radiopharmaceutical: 2 mCi Technetium 99M Sulfur colloid orally in egg. FINDINGS: There was 27% emptying at the 30 minute time nika. 43% emptying was seen at 71 minute time nkia. 60% emptying was seen at the 124 minute time nika, 89% emptying was seen at the 186 minute time nika. 95% emptying was seen at the 240 minute time nika. T is 95 minutes. IMPRESSION: Gastric emptying study as above. POS: LESA
== END 2018-06-22 07:41 | disposition home or self-care (01) ==
LOC: NM 07:40
PROVIDERS: ATTEND Surgery
DX: K21.9 Gastro-esophageal reflux disease without esophagitis (principal)
CPT/HCPCS: 78264; A9541

== ENCOUNTER 2019-05-07 13:19 | Emergency (ER) | payer MEDICARE, OTHER, SELFPAY ==
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
[2019-05-07 14:13] LABS: Hemoglobin 15.5 g/dL (14.0-18.0); Mean Corpuscular HGB CONC 33.7 g/dL (32.0-36.0); Mean Corpuscular Hemoglobin 30.3 pg (27.0-31.0); Platelet Count 179 thou/uL (130-400); RBC Distribution Width 12.3 % (11.5-14.5); Red Blood Cell (RBC) Count 5.11 mill/uL (4.70-6.10); White Blood Cell (WBC) Count 5.2 thou/uL (4.8-10.8)
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
[2019-05-07 14:23] LABS: PTT 24.4 SEC (22.9-36.1)
[2019-05-07 14:26] LABS: ALT (SGPT) 29 U/L (8-55); AST (SGOT) 36 U/L (5-34); Albumin 4.2 g/dL (3.4-4.8); Alkaline Phosphatase 105 U/L (40-110); Anion Gap 12 mmol/L (10-20); BUN (Urea Nitrogen) 11 mg/dL (8.4-25.7); Bilirubin, Total 0.5 mg/dL (0.2-1.2); Calc. Creatinine Clearance 0 mL/min (70-130); Calcium 8.8 mg/dL (7.8-10.44); Carbon Dioxide 24 mmol/L (23-31); Chloride 103 mmol/L (98-107); Estimated GFR-MDRD 80; Globulin 2.9 g/dL (2.4-3.5); Glucose 114 mg/dL (80-115); Potassium 3.8 mmol/L (3.5-5.1); Protein, Total 7.1 g/dL (5.8-8.1); Sodium 135 mmol/L (136-145)
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
[2019-05-07 14:30] LABS: Troponin I 0.016 ng/mL (< 0.028)
[2019-05-07 14:44] LABS: Band 1 % (5-11); Lymphocytes 27 % (21-51); MDiff Complete? YES; Monocytes 7 % (0-10); Neutrophil 63 % (42-75); Platelet Morphology Comment Appears Adequate; Reactive Lymphocytes 2 % (0-10)
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
[2019-05-07] MEDS ORDERED: Morphine 10 MG/ML VIAL ONE (15:55)
== END 2019-05-07 17:15 | disposition home or self-care (01) ==
LOC: ERS 13:19
DX: M54.5 Low back pain (principal); Z86.73 Personal history of transient ischemic attack (TIA), and cerebral infarction without residual deficits; I20.9 Angina pectoris, unspecified; F32.9 Major depressive disorder, single episode, unspecified; Z79.899 Other long term (current) drug therapy; Z79.51 Long term (current) use of inhaled steroids
CPT/HCPCS: 70450; 71045; 71260; 72125; 74177; 80053; 84484; 85025; 85610; 85730; 86850; 86900; 86901; 96361; 96374; J2270

== ENCOUNTER 2019-06-21 13:06 | Outpatient (CLI) | payer MEDICARE, OTHER ==
--- NOTE | 2019-06-21 14:11 | CT ---
CT BRAIN WITHOUT CONTRAST: COMPARISON: 05/07/2019 FINDINGS: The ventricular and cisternal system shows age appropriate change. There are no signs of intracerebra l hemorrhage or extraaxial fluid collections. The mastoid air cells are clear. There is some minimal maxillary sinus mucosal change. IMPRESSION: No acute intracranial abnormalities. POS: TPC
== END 2019-06-21 13:07 | disposition home or self-care (01) ==
LOC: BICCT 13:06
PROVIDERS: ATTEND Nurse Practitioner Family
DX: R42 Dizziness and giddiness (principal)
CPT/HCPCS: 70450

== ENCOUNTER 2020-06-28 16:10 | Observation (INO) | payer MEDICARE, OTHER ==
[2020-06-28 16:47] LABS: #Eosinphils 0.2 thou/uL (0.0-0.7); #Lymphocytes 2.2 thou/uL (1.20-3.40); #Monocytes 0.7 thou/uL (0.11-0.59); %Eosinophils 3.3 % (0.0-10.0); %Lymphocytes 43.7 % (21.0-51.0); %Neutrophils 38.9 % (42.0-75.0); Hemoglobin 13.4 g/dL (14.0-18.0); Mean Corpuscular HGB CONC 32.8 g/dL (32.0-36.0); Mean Corpuscular Hemoglobin 30.1 pg (27.0-31.0); Mean Corpuscular Volume 91.9 fL (78.0-98.0); Mean Platelet Volume 7.4 fL (7.4-10.4); Platelet Count 173 thou/uL (130-400); RBC Distribution Width 11.6 % (11.5-14.5); Red Blood Cell (RBC) Count 4.44 mill/uL (4.70-6.10); White Blood Cell (WBC) Count 5.1 thou/uL (4.8-10.8)
[2020-06-28 16:52] LABS: PTT 28.8 sec (22.9-36.1)
[2020-06-28 17:06] LABS: ALT (SGPT) 25 U/L (8-55); AST (SGOT) 24 U/L (5-34); Albumin 3.7 g/dL (3.4-4.8); Alkaline Phosphatase 80 U/L (40-110); Anion Gap 12 mmol/L (10-20); BUN (Urea Nitrogen) 9 mg/dL (8.4-25.7); Bilirubin, Total 0.4 mg/dL (0.2-1.2); Calc. Creatinine Clearance 0 mL/min (70-130); Calcium 8.4 mg/dL (7.8-10.44); Carbon Dioxide 27 mmol/L (23-31); Chloride 101 mmol/L (98-107); Globulin 2.4 g/dL (2.4-3.5); Glucose 108 mg/dL (80-115); Magnesium 1.9 mg/dL (1.6-2.6); Potassium 4.2 mmol/L (3.5-5.1); Protein, Total 6.1 g/dL (5.8-8.1); Sodium 136 mmol/L (136-145)
--- NOTE | 2020-06-28 17:08 | RAD ---
EXAM: CHEST ONE VIEW HISTORY: Left-sided weakness. Stroke. Parenchymal opacity walking due to leg weakness. COMPARISON: 05/07/2019 FINDINGS: Cardiac silhouette and pulmonary vasculature are within normal limits for the portable technique of t he study. There are linear densities seen at each lung base which may represent atelectasis or mild scarring. There is no consolidation or pleural fluid appreciated. Dorsal column stimulator leads agai n overlie the thoracic spine. Postoperative changes cervical spine are again seen. No interval change from prior study. IMPRESSION: Bibasilar scarring and/or atelectasis without evidence of an acute cardiopulmonary process.
[2020-06-28] MEDS ORDERED: Aspirin 325 MG TAB ONE (17:27)
--- NOTE | 2020-06-28 18:53 | PDOC.HHP ---
Hospitalist HPI - History of Present Illness LLE weakness History of Present Illness: PCP: Dr. Jonny Yeboah The patient is a 70-year-old male with a past medical history significant for TIA, angina, degenerative joint disease with stimulator (right hip), and depression that presents to the emergency department via personal vehicle for the above complaint. The patient reports waking about 815 this morning and getting out of bed. He noted that his left lower extremity felt "weird". As he was putting on his pants, he had difficulty raising his left leg to put into his pants and he lost his balance and fell backwards. He denies any LOC or hitting his head. He called for his who was nearby and she helped him get up. She noted he had an ataxic gait. Denies sudden onset headache, vision changes, changes in speech. No recent fever or illness. No previous trauma or fall. No recent change in medications at home. No recent surgeries. He had no chest pain, heart palpitations or lightheadedness. Denies dizziness, vertigo. Denies any short of breath, wheezing or history of DVT/PE. Denies abdominal pain, nausea, vomiting, melena/hematochezia. Denies any dysuria or hematuria. ED Course: VITAL SIGNS Fransisca Jun 28, 2020 16:11 DEWAYNE Argueta Jennifer BP: 134/91, Pulse: 70, Resp: 16, Temp: 98.0 (Oral), Pain: 0, O2 sat: 94 on (Room Air), Time: 06/28/2020 16:11. VITAL SIGNS Fransisca Jun 28, 2020 17:31 DEWAYNE Navas Amanda BP: 129/93, MAP: 105, Pulse: 65, Resp: 16, Temp: 98.1 (Oral), Pain: 1, O2 sat: 95 on (Room Air), Time: 06/28/2020 17:31. Medications: aspirin oral 325 mg Oral Given 17:29 06/28/2020 Hospitalist ROS - Review of Systems All other systems reviewed; all pertinent +/- noted in HPI/Subj - Medication Medications: DULoxetine Fransisca Jun 28, 2020 16:57 DEWAYNE Higgins, Brian capsule,delayed release(DR/EC) : Strength - 30 mg : ORAL Patient Dose: 30 mg Oral once a day. aspirin oral Fransisca Jun 28, 2020 16:57 DEWAYNE Higgins Luke tablet : Strength - 81 mg : ORAL Patient Dose: 81 mg Oral once a day (at bedtime). morphine oral ThuJun 28, 2020 17:03 DEWAYNE Higgins Luke capsule,extend.release pellets : Strength - 60 mg : ORAL Patient Dose: 60 mg Oral As Needed. isosorbide mononitrate Fransisca Jun 28, 2020 17:05 DEWAYNE Higgins Luke tablet extended release 24 hr : Strength - 30 mg : ORAL Patient Dose: 30 mg Oral. promethazine oral ThuJun 28, 2020 17:06 DEWAYNE Higgins Luke tablet : Strength - 25 mg : ORAL Patient Dose: 25 mg Oral. DexAlone ThuJun 28, 2020 17:06 DEWAYNE Higgins Luke capsule : Strength - 30 mg : ORAL Patient Dose: 30 mg Oral. QUEtiapine ThuJun 28, 2020 17:08 DEWAYNE Higgins Luke tablet : Strength - 25 mg : ORAL Patient Dose: 30 mg Oral. buPROPion HCl ThuJun 28, 2020 17:09 DEWAYNE Higgins Luke tablet extended release 24 hr : Strength - 300 mg : ORAL Patient Dose: 300 mg Oral once a day. pravastatin Fransisca Jun 28, 2020 17:10 DEWAYNE Higgins Luke tablet : Strength - 80 mg : ORAL Patient Dose: 80 mg Oral once a day. levothyroxine oral ThuJun 28, 2020 17:11 DEWAYNE Higgins Luke tablet : Strength - 25 mcg : ORAL Patient Dose: 35 mcg Oral once a day. dimenhyDRINATE oral ThuJun 28, 2020 17:11 DEWAYNE Higgins Luke tablet : Strength - 50 mg : ORAL Patient Dose: 50 mg Oral 2 times a day. chloroxine (bulk) ThuJun 28, 2020 17:12 DEWAYNE Higgins Luke powder : Strength - 100 % : MISCELLANEOUS Patient Dose: Unknown. Reglan oral ThuJun 28, 2020 17:12 DEWAYNE Higgins Luke solution : Strength - 5 mg/5 mL : ORAL Patient Dose: 10 mL Oral 2 times a day. PARoxetine HCl [facility] Jun 28, 2020 17:12 DEWAYNE Higgins Luke tablet : Strength - 20 mg : ORAL Patient Dose: 20 mg Oral 2 times a day. Lunesta Fransisca Jun 28, 2020 17:13 DEWAYNE Higgins Luke tablet : Strength - 3 mg : ORAL Patient Dose: 3 mg Oral 2 times a day. melatonin oral Fransisca Jun 28, 2020 17:13 DEWAYNE Higgins Luke capsule : Strength - 10 mg : ORAL Patient Dose: 10 mg Oral once a day (at bedtime). testosterone transdermal Fransisca Jun 28, 2020 17:14 DEWAYNE Higgins Luke gel : Strength - 50 mg/5 gram (1 %) : TRANSDERMAL Patient Dose: Unknown. Symbicort [facility] Jun 28, 2020 17:15 DEWAYNE Higgins Luke HFA aerosol inhaler : Strength - 160 mcg-4.5 mcg/actuation : INHALATION Patient Dose: As Needed. sucralfate [facility] Jun 28, 2020 17:15 DEWAYNE Higgins Luke suspension : Strength - 1 gram/10 mL : ORAL Patient Dose: 10 mL Oral 2 times a day. Allergies: Cymbalta, duloxetine (Unconfirmed), gabapentin, Lyrica, pregabalin (Unconfirmed) Hospitalist History - Past Medical History Source: patient, RN notes reviewed Cardiac: reports: Hyperlipidemia, Other (Angina) [employer]: reports: TIA Psych: reports: Depression Musculoskeletal: reports: Other (Degenerative joint disease, right hip stimulator, primarily L1-S1) Endocrine: reports: Hypothyroidism - Past Surgical History Past Surgical History: reports: Other (Back/neck, bilateral knees, frozen shoulder, paralysis left hand status post Skil saw surgery, right thumb, bilateral wrist and elbows) - Family History Family History: denies: cerebrovascular accident - Social History Smoking Status: Former smoker (Quit when he was 19 years old) Alcohol: reports: None Drugs: reports: none Living Situation: With Family Occupation: Retired Activity level: uses cane/walker - Exam General Appearance: NAD, awake alert. negative: ill appearing Eye: PERRL, anicteric sclera ENT: normocephalic atraumatic Neck: supple, symmetric Heart: RRR, no murmur, no gallops, no rubs, normal peripheral pulses Respiratory: CTAB, no wheezes, no rales, no ronchi, normal chest expansion, no tachypnea Gastrointestinal: soft, non-tender, non-distended, normal bowel sounds, no brui t, no guarding, no rigidity Extremities: no cyanosis, no edema Skin: no rashes Neurological: cranial nerve grossly intact, no focal deficits Neurological - other findings: GCS 15, NIH 0 Musculoskeletal: normal tone, normal strength Psychiatric: normal affect, A&O x 3 Hospitalist Results - Labs Result Diagrams: 06/28/20 16:33 06/28/20 16:33 Lab results: WBC 5.1 thou/uL (4.8-10.8) 06/28/20 16:33 Hgb 13.4 g/dL (14.0-18.0) L 06/28/20 16:33 Hct 40.8 % (42.0-52.0) L 06/28/20 16:33 MCV 91.9 fL (78.0-98.0) 06/28/20 16:33 Plt Count 173 thou/uL (130-400) 06/28/20 16:33 Neutrophils % 38.9 % (42.0-75.0) L 06/28/20 16:33 Sodium 136 mmol/L (136-145) 06/28/20 16:33 Potassium 4.2 mmol/L (3.5-5.1) 06/28/20 16:33 Chloride 101 mmol/L (98-107) 06/28/20 16:33 Carbon Dioxide 27 mmol/L (23-31) 06/28/20 16:33 BUN 9 mg/dL (8.4-25.7) 06/28/20 16:33 Creatinine 0.88 mg/dL (0.7-1.3) 06/28/20 16:33 Glucose 108 mg/dL (80-115) 06/28/20 16:33 Calcium 8.4 mg/dL (7.8-10.44) 06/28/20 16:33 Total Bilirubin 0.4 mg/dL (0.2-1.2) 06/28/20 16:33 AST 24 U/L (5-34) 06/28/20 16:33 ALT 25 U/L (8-55) 06/28/20 16:33 Alkaline Phosphatase 80 U/L (40-110) 06/28/20 16:33 Troponin I 0.012 ng/mL (< 0.028) 06/28/20 16:33 Serum Total Protein 6.1 g/dL (5.8-8.1) 06/28/20 16:33 Albumin 3.7 g/dL (3.4-4.8) 06/28/20 16:33 - EKG Interpretation EKG: Heart rate [address] elevation - Radiology Interpretation Chest x-ray Status: report reviewed by me Additional Comment: IMPRESSION: Bibasilar scarring and/or atelectasis without evidence of an acute cardiopulmonary process. CT scan - head Status: report reviewed by me Additional Comment: No acute intracranial process. Hospitalist H&P A/P - Problem (1) TIA (transient ischemic attack) Code(s): G45.9 - TRANSIENT CEREBRAL ISCHEMIC ATTACK, UNSPECIFIED Status: Acute (2) Left leg weakness Code(s): R29.898 - OT SYMPTOMS AND SIGNS INVOLVING THE MUSCULOSKELETAL SYSTEM Status: Acute (3) History of angina Code(s): Z86.79 - PERSONAL HISTORY OF OTHER DISEASES OF THE CIRCULATORY SYSTEM Status: Chronic (4) Degenerative joint disease Code(s): M19.90 - UNSPECIFIED OSTEOARTHRITIS, UNSPECIFIED SITE Status: Chronic (5) Depression Code(s): F32.9 - MAJOR DEPRESSIVE DISORDER, SINGLE EPISODE, UNSPECIFIED Status: Chronic (6) Hypothyroidism Code(s): E03.9 - HYPOTHYROIDISM, UNSPECIFIED Status: Chronic - Plan Plan: 70/M with H TIA presents for left lower extremity weakness. Admit to stroke unit, observation status. Expected length of stay less than 2 m idnights. Presented stable vital signs. EKG NSR, no ST elevations. CXR no acute process Troponin negative. CMP, coags, CBC unremarkable. #TIA Basically symptoms resolved on arrival. Order MRI, CD US, echocardiogram. Consult stroke team and neurology. Continue aspirin, start statin. Check TSH, FLP, UA, B12/folate. Neuro checks. Permissive hypertension. #Left leg weakness Likely related to problem #1. #History of angina No history of stenting. Takes baby aspirin and Imdur at home. We will restart home medications when reconciled by nursing. Degenerative joint disease Reports primarily affects L1-S1 Right hip stimulator in place. Takes multiple narcotics at home. We will restart home medications reconciled by nursing. #Depression Denies SI/HI. Takes multiple home medications. Restart home medications and reconciled by nursing. #Hypothyroidism We will check TSH. Restart home dose levothyroxine reconciled by nursing. SCDs for DVT prophylaxis. Pepcid for GI prophylaxis. Full code. Discussed the case with Dr. Griggs.
--- NOTE | 2020-06-28 18:55 | CT ---
NONCONTRAST CT HEAD: 06/28/20 HISTORY: Altered mental status, weakness on left side. Difficulty walking. COMPARISON: 06/21/19. FINDINGS: There is no evidence of a hemorrhage, acute infarction, mass effect, or midline shift. Mild cerebral volume loss is again present. Ventricular system is normal in size, shape and position. The visualized paranasal sinuses are clear. Calvarial structures have a normal appearance. CT head is stable compared to prior exam in 2019. IMPRESSION: No acute intracranial abnormality demonstrated. POS: GERA
[2020-06-28] MEDS ORDERED: Labetalol HCl 100 MG/20 ML VIAL SLOW IVP PRN (20:00)
[2020-06-28] MEDS ORDERED: hydrALAZINE 20 MG/ML VIAL SLOW IVP PRN (20:00)
[2020-06-28] MEDS ORDERED: Acetaminophen 325 MG TAB PO PRN (20:03)
[2020-06-28] MEDS ORDERED: Bisacodyl 5 MG TAB PO PRN (20:03)
[2020-06-28] MEDS ORDERED: Ondansetron PF 4 MG/2 ML Vial IVP PRN (20:03)
[2020-06-28] MEDS ORDERED: Senokot S 8.6-50 MG TAB PO PRN (20:03)
[2020-06-28] MEDS ORDERED: Ondansetron ODT 4 MG TAB PO PRN (20:03)
[2020-06-28] MEDS ORDERED: Atorvastatin Calcium 40 MG TAB PO SCH (21:00)
[2020-06-28 22:27] LABS: Bacteria/HPF None Seen HPF (None Seen); Bilirubin Negative (Negative); Blood, Urine Negative (Negative); Clarity Clear (Clear); Glucose, Urine (Dipstick) Normal (Negative); Ketone, Urine Negative (Negative); Leukocyte Negative Leu/uL (Negative); Nitrite Negative (Negative); Protein, Urine (Dipstick) Negative (Neg-Trace); RBC/HPF 0-3 HPF (0-3); Specific Gravity, Urine 1.015 (1.002-1.036); Squamous Epithelial None Seen HPF (0-3); Urobilinogen Normal mg/dL (Less than 2); WBC/HPF 0-3 HPF (0-3)
[2020-06-28] MEDS ORDERED: Calcium Carbonate 500 MG ChewTAB PO PRN (23:26)
[2020-06-28] MEDS ORDERED: PROVENTIL INHALER 6.7 G (200 INHALATIONS) INH PRN (23:26)
[2020-06-28] MEDS: Famotidine 20 MG TAB PO SCH (23:28)
[2020-06-29] MEDS ORDERED: Morphine ER 30 MG TAB PO PRN (00:14)
[2020-06-29] MEDS ORDERED: Melatonin 3 MG TAB PO PRN (00:14)
[2020-06-29] MEDS ORDERED: Cyclobenzaprine 10 MG TAB PO SCH ×2 (00:30→09:00)
[2020-06-29] MEDS: Morphine ER 30 MG TAB PO PRN ×3 (00:40→14:58)
[2020-06-29 01:49] VITALS: BMI 25.7
[2020-06-29 05:45] LABS: Anion Gap 9 mmol/L (10-20); BUN (Urea Nitrogen) 11 mg/dL (8.4-25.7); Calc. Creatinine Clearance 84 mL/min (70-130); Calcium 8.4 mg/dL (7.8-10.44); Carbon Dioxide 29 mmol/L (23-31); Cardiac Risk 3.3 (Less than 4.5); Chloride 101 mmol/L (98-107); Cholesterol 103 mg/dl (< 200 Desired); Glucose 82 mg/dL (80-115); HDL Cholesterol 31 mg/dL (>60 Neg Risk); LDL Cholesterol, Calculated 48 mg/dL; Potassium 4.1 mmol/L (3.5-5.1); Sodium 135 mmol/L (136-145); Triglycerides 119 mg/dL (Less than 150)
[2020-06-29 05:56] LABS: Eosinophils 4 % (0-10); Lymphocytes 52 % (21-51); MDiff Complete? YES; Mean Corpuscular HGB CONC 32.9 g/dL (32.0-36.0); Mean Corpuscular Hemoglobin 29.8 pg (27.0-31.0); Mean Corpuscular Volume 90.4 fL (78.0-98.0); Mean Platelet Volume 7.2 fL (7.4-10.4); Monocytes 10 % (0-10); Neutrophil 29 % (42-75); Platelet Count 170 thou/uL (130-400); RBC Distribution Width 11.6 % (11.5-14.5); Reactive Lymphocytes 5 % (0-10); Red Blood Cell (RBC) Count 4.37 mill/uL (4.70-6.10); White Blood Cell (WBC) Count 4.6 thou/uL (4.8-10.8)
--- NOTE | 2020-06-29 07:42 | ULT ---
BILATERAL CAROTID DUPLEX ULTRASOUND: HISTORY: Rule out CVA TECHNIQUE: Grayscale, color-flow and spectral Doppler ultrasound imaging of the extracranial carotid artery syst ems and vertebral arteries was performed bilaterally. FINDINGS: There is a mild amount of atherosclerotic plaque involving the right carotid bulb and mild to moderat e atherosclerotic irregularity and plaque involving the left carotid bulb and proximal left ICA. The peak systolic velocity in the right ICA measures 69.6 cm/s. The peak systolic velocity in the ri ght CCA measures 72.2 cm/s. The peak systolic velocity in the left ICA measures 69.0 cm/s. The peak systolic velocity in the l eft CCA measures 82.3 cm/s. The right IC/CC ratio is0.96. The left IC/CC ratio is 0.84. Vertebral flow: antegrade, bilaterally. . IMPRESSION: No hemodynamically significant stenosis of Both ICAs.
[2020-06-29] MEDS: Famotidine 20 MG TAB PO SCH (08:44)
[2020-06-29] MEDS ORDERED: FLU VACC QS2020-21(65YR UP)/PF 240 MCG/0.7 ML SYRINGE IM ONE (09:00)
[2020-06-29] MEDS ORDERED: Vortioxetine Hydrobromide [Trintellix] 20 MG Tablet PO SCH (09:00)
[2020-06-29] MEDS ORDERED: Aspirin 325 mg Enteric Coated Tablet PO SCH (09:00)
[2020-06-29] MEDS ORDERED: Docusate 100 MG CAP PO SCH (09:00)
[2020-06-29 12:20] VITALS: TEMP 98.2
--- NOTE | 2020-06-29 12:29 | CT ---
CT Lumbar Spine WO Con INDICATION: Low back pain after fall yesterday COMPARISON: Lumbar spine CT dated July 14, 2016 and lumbar spinal radiographs dated December 26, 2019 FINDINGS: Fracture: There is a stable chronic wedge compression fracture of L1. There is stable postprocedural change of bilateral posterior lumbar interbody fusions of L2-L4 and L5 and S1. The pedicle screws and interconnecting rods appear intact. Intervertebral cages of L3-4 through L5-S1 demonstrate solid osseous incorporation of interbody bone graft. There is ankylosis of the intervertebral disc space at L2-3. Spinal alignment: There is some reversal the normal lumbar lordosis. There is mild grade 1 anterolist hesis of T11 on T12 which is slightly more accentuated than on prior examination due to degenerative anterolisthesis. There is vacuum disc phenomenon at T11-T12 and L1-L2. Lumbar spine degenerative change: There is advanced disc degenerative disease at L1-L2 and moderate d isc degenerative disease at T11-T12 and T12-L1. There is advanced osteoarthritic change of both SI joints. Visualized retroperitoneum and paraspinal soft tissues: There are severe vascular calcifications seen involving the visualized vasculature. No pathologically enlarged lymph nodes are evident. There is partial visualization of a penile implant reservoir. IMPRESSION: 1. No acute fracture or subluxation. 2. Stable chronic wedge compression abnormality of L1. 3. Severe lumbar spondylosis most pronounced at L1-2 and T11-T12. 4. Diffuse osteopenia.
--- NOTE | 2020-06-29 14:30 | CON ---
NEUROLOGY CONSULTATION DATE OF CONSULTATION: 06/29/2020 REASON FOR CONSULTATION: Left lower extremity weakness, rule out TIA. HISTORY OF PRESENT ILLNESS: Mr. Oates is a 70-year-old male with medical history significant for prior TIA, angina, degenerative joint disease with stimulator, and depression, presented to the emergency department by person when he came because of left lower extremity weakness. Per the patient, around 0815 hours yesterday morning, he has difficulty getting out of his bed and when he has tried to change his clothes, he has difficulty raising his left leg and he fell backwards. The patient denies any focal weakness; focal numbness; nausea; vomiting; headache; chest pain; abdominal pain; problems with speech, vision, or hearing; vertigo; dizziness, shortness of breath; or recent illness or recent exposure to COVID. The patient does complain of extreme excruciating pain, which starts from the lower back and radiates to the left leg. He does have history of neuropathic pain and is currently on stimulator and also uses pain medications. This morning, his weakness is much better, but he still complained of severe pain. In the emergency room, he was given aspirin and admitted for further evaluation. REVIEW OF SYSTEMS: All systems reviewed and were negative except the pertinent positives and negatives mentioned in the HPI. HOME MEDICATIONS: 1. Duloxetine. 2. Aspirin. 3. Morphine. 4. Isosorbide mononitrate. 5. Promethazine. 6. DexAlone. 7. Seroquel. 8. Bupropion. 9. Pravastatin. 10. Levothyroxine. 11. Dimenhydrinate. 12. Bupropion 13. Reglan. 14. Paroxetine. 15. Lunesta. 16. Melatonin. 17. Testosterone transdermal. 18. Symbicort. 19. Sucralfate. ALLERGIES: CYMBALTA, DULOXETINE UNCONFIRMED, GABAPENTIN, AND LYRICA. PAST MEDICAL HISTORY: Hyperlipidemia, chest pain, prior TIA, depression, and degenerative joint disease. PAST SURGICAL HISTORY: Right hip stimulator primarily L1-S5, bilateral knee surgery, frozen shoulder surgery, and paralysis left hand status post surgery. FAMILY HISTORY: Denies history of cerebrovascular accident. SOCIAL HISTORY: He lives with family. He is retired. Uses cane and walker. Denies alcohol or illegal drug use. He quit smoking when he was 19 years old. PHYSICAL EXAMINATION: VITAL SIGNS: Blood pressure 135/71, pulse 90, and respiratory rate 18. General Appearance: NAD, awake alert. negative: ill appearing Eye: PERRL, anicteric sclera ENT: normocephalic atraumatic Neck: supple, symmetric Heart: RRR, no murmur, no gallops, no rubs, normal peripheral pulses Respiratory: CTAB, no wheezes, no rales, no ronchi, normal chest expansion, no tachypnea Gastrointestinal: soft, non-tender, non-distended, normal bowel sounds, no bruit, no guarding, no rigidity Extremities: no cyanosis, no edema Skin: no rashes Neurological: Mental status, the patient is alert and oriented to person, place, and time. Speech is clear. Recent and remote memory intact. Fund of knowledge is appropriate. Cranial nerves 2 through 12 intact. Motor, muscle tone and bulk are normal. Strength 5/5 except left lower extremity 4+/5 strength limited due to severe pain. Sensory intact. Cerebellar finger-nose testing intact. Gait deferred due to the patient's safety reasons. DATA REVIEWED: WBC 5.1 thou/uL (4.8-10.8) 06/28/20 16:33 Hgb 13.4 g/dL (14.0-18.0) L 06/28/20 16:33 Hct 40.8 % (42.0-52.0) L 06/28/20 16:33 MCV 91.9 fL (78.0-98.0) 06/28/20 16:33 Plt Count 173 thou/uL (130-400) 06/28/20 16:33 Neutrophils % 38.9 % (42.0-75.0) L 06/28/20 16:33 Sodium 136 mmol/L (136-145) 06/28/20 16:33 Potassium 4.2 mmol/L (3.5-5.1) 06/28/20 16:33 Chloride 101 mmol/L (98-107) 06/28/20 16:33 Carbon Dioxide 27 mmol/L (23-31) 06/28/20 16:33 BUN 9 mg/dL (8.4-25.7) 06/28/20 16:33 Creatinine 0.88 mg/dL (0.7-1.3) 06/28/20 16:33 Glucose 108 mg/dL (80-115) 06/28/20 16:33 Calcium 8.4 mg/dL (7.8-10.44) 06/28/20 16:33 Total Bilirubin 0.4 mg/dL (0.2-1.2) 06/28/20 16:33 AST 24 U/L (5-34) 06/28/20 16:33 ALT 25 U/L (8-55) 06/28/20 16:33 Alkaline Phosphatase 80 U/L (40-110) 06/28/20 16:33 Troponin I 0.012 ng/mL (< 0.028) 06/28/20 16:33 Serum Total Protein 6.1 g/dL (5.8-8.1) 06/28/20 16:33 Albumin 3.7 g/dL (3.4-4.8) 06/28/20 16:33 - EKG Interpretation EKG: Heart rate [address] elevation - Radiology Interpretation Chest x-ray Status: report reviewed by me Additional Comment: IMPRESSION: Bibasilar scarring and/or atelectasis without evidence of an acute cardiopulmonary process. CT scan - head Status: report reviewed by me Additional Comment: No acute intracranial process. ASSESSMENT AND PLAN: (1) Left leg weakness Code(s): R29.898 - [facility] SYMPTOMS AND SIGNS INVOLVING THE MUSCULOSKELETAL SYSTEM Status: Acute (2) History of angina Code(s): Z86.79 - PERSONAL HISTORY OF OTHER DISEASES OF THE CIRCULATORY SYSTEM Status: Chronic (3) Degenerative joint disease Code(s): M19.90 - UNSPECIFIED OSTEOARTHRITIS, UNSPECIFIED SITE Status: Chronic (4) Depression Code(s): F32.9 - MAJOR DEPRESSIVE DISORDER, SINGLE EPISODE, UNSPECIFIED Status: Chronic (5) Hypothyroidism Code(s): E03.9 - HYPOTHYROIDISM, UNSPECIFIED Status: Chronic Mr. Armando Oates is a 70-year-old male, who presented with left lower extremity weakness. He does have risk factors for stroke; however, according to the patient, his left lower extremity weakness was associated with extreme pain, which starts from the lower back and radiates to the leg, so most likely etiology is in the peripheral nervous system involving the sciatic nerve. The patient is unable to take pregabalin or gabapentin for neuropathic pain since because of history of side effects including hallucination. Consider pain control with current medication regimen. Optimal pain control will further improve the weakness and mobility. No other focal deficits on exam. Head CT did not reveal any acute intracranial pathology. Carotid Dopplers did not reveal hemodynamically significant stenosis. 2D echo showed ejection fraction of 50% to 55%. No thrombus or PFO. Continue medical management per primary team and home medications. Continue aspirin and high-intensity statin since the patient has history of prior TIA, DVT prophylaxis, GI prophylaxis, and PT/OT/speech. Thank you for the consult. Job ID: [id number] [facility]ALTarun
[2020-06-29] MEDS ORDERED: Lidocaine 5% Patch TD SCH (15:00)
[2020-06-29] MEDS ORDERED: Diazepam 5 MG TAB PO SCH (15:30)
--- NOTE | 2020-06-29 18:08 | PDOC.DS.DS ---
Provider - Provider Date of Admission: 06/28/20 19:38 Date of Discharge: 06/29/20 Admitting Provider: Lior Griggs DO Primary Care Physician: Jose Morel MD Course - Hospital Course Hospital Course: Patient is a very pleasant 70-year-old male with significant lower back pain sees pain management who came into the hospital with left lower extremity weakness. Patient states that he was trying to put his pants on when his left leg gave out and patient fell on the floor. He denies any loss of consciousness. Given his stimulator he was not capable for an MRI brain. Echo indicated EF 50 to 55% which was otherwise normal. I did do a CT lumbar which did not show any acute abnormalities. Patient was able to ambulate and felt that he was almost back to his baseline. Patient stated that he will follow up with his primary care doctor as outpatient. He does follow pain management so no additional pain medications were given except for some Lidoderm patch and Voltaren gel. Patient will also require neurosurgery follow-up as outpatient. Patient has extensive hardware to his lower back. 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 I did tell the patient that if his symptoms return or if his weakness gets worse he needs to come into the hospital. Discussed options of either getting surgery involved versus outpatient follow-up patient stated that he wanted to follow-up as an outpatient did not want to be in the hospital for that. Lumbar CT indicated stable chronic wedge compression abnormalities L1 no acute fracture. Severe lumbar spondylosis more pronounced at L1-L2 T11-T12 Resuscitation Status: 06/28/20 20:03 Resuscitation Status Routine Co-Sign Provider: Resuscitation Status: FULL: Full Resuscitation Discussed with: patient - Labs Lab Results: 06/29/20 05:14 06/29/20 05:14 Abnormal Lab Results - Last 48 hrs 06/28/20 16:33: RBC 4.44 L, Hgb 13.4 L, Hct 40.8 L, Neutrophils % 38.9 L, Monocytes % 14.0 H, Monocytes # 0.7 H 06/29/20 05:14: Sodium 135 L, Anion Gap 9 L 06/29/20 05:14: WBC 4.6 L, RBC 4.37 L, Hgb 13.0 L, Hct 39.5 L, MPV 7.2 L, Neutrophils % (Manual) 29 L, Lymphocytes % (Manual) 52 H - Physical Exam Vitals: Vital Signs (12 hours) Temp Pulse Pulse Pulse Resp BP BP 06/29/20 12:18 98.2 F 65 20 06/29/20 10:15 61 60 128/81 134/82 06/29/20 08:00 98.3 F 56 L 20 BP Pulse Ox 06/29/20 12:18 110/71 95 06/29/20 10:15 06/29/20 08:00 137/65 95 Weight Weight 159 lb 6.4 oz Physical Exam: The patient was seen and examined on the day of discharge. Plan - Discharge Medications Prescriptions: Lidocaine 5% Patch [Lidoderm 5% Patch] 1 patch TD NOW #20 patch Diclofenac Sodium [Voltaren] 100 gm TP TID #1 gel..gram. Home Medications: Medication Instructions Recorded Confirmed Type Albuterol Sulfate [Proair HFA] 1 puff INH PRN PRN 10/27/17 06/28/20 History Calcium Carbonate [Tums] 1,000 mg PO QAM-WM PRN 10/27/17 06/28/20 History Eszopiclone 3 mg PO PRN PRN 10/27/17 06/28/20 History Isosorbide Mononitrate [Isosorbide 30 mg PO DAILY 10/27/17 06/28/20 History Mononitrate ER] Melatonin 5 mg PO HS PRN 10/27/17 06/28/20 History Morphine Sulfate 30 mg PO QID PRN 10/27/17 06/28/20 History Morphine Sulfate [Morphine Sulfate 60 mg PO TID PRN 10/27/17 06/28/20 History ER] Sucralfate [Carafate Oral 2 gm PO BID 10/27/17 06/28/20 History Suspension] Vortioxetine Hydrobromide 10 mg PO DAILY 10/27/17 06/28/20 History [Trintellix] Dexlansoprazole [Dexilant] 60 mg PO BID 60 Days 10/28/17 06/28/20 Rx Acetaminophen [Tylenol Regular 325 mg PO Q4HR PRN 11/03/17 06/28/20 History Strength] Docusate [Colace] 100 mg PO BID 11/03/17 06/28/20 History Sennosides [Senokot] 2 tab PO HS 11/03/17 06/28/20 History guaiFENesin ER [Mucinex] 600 mg PO BID PRN 11/03/17 06/28/20 History Aspirin [Ecotrin Low Strength] 81 mg PO DAILY 06/28/20 06/28/20 History Chlorzoxazone 500 mg PO BID 06/28/20 06/28/20 History QUEtiapine Fumarate [SEROquel] 300 mg PO HS 06/28/20 06/28/20 History Diclofenac Sodium [Voltaren] 100 gm TP TID #1 gel..gram. 06/29/20 Rx Lidocaine 5% Patch [Lidoderm 5% 1 patch TD NOW #20 patch 06/29/20 Rx Patch] Allergies: duloxetine [From Cymbalta] Allergy (Verified 06/28/20 23:08) gabapentin Allergy (Verified 06/28/20 23:08) hallucinations pregabalin [From Lyrica] Allergy (Verified 06/28/20 23:08) "MASSIVE HALLUCINATIONS. VERY RADICAL" - Discharge Instructions Activity:: Activity as Tolerated Nourishment:: Heart Healthy Diet - Follow up Plan Referrals: Jonny Yeboah MD [Active] - 7 Days Jose Morel MD [Primary Care Provider] - 7 Days Disposition: HOME Quality - Care Measures CORE MEASURES:: N/A
[2020-06-29] MEDS ORDERED: Senokot 8.6 MG TAB PO SCH (21:00)
[2020-06-29] MEDS ORDERED: Sucralfate 1 GM/10 ML UDCUP PO SCH (21:00)
[2020-06-29 22:15] VITALS: BP 134/81
[2020-06-30] MEDS ORDERED: Lidocaine Patch Removal 1 EACH TOP SCH (03:00)
--- NOTE | 2020-06-30 11:26 | EKG ---
Test Reason : Blood Pressure : / mmHG Vent. Rate : 061 BPM Atrial Rate : 061 BPM P-R Int : 208 ms QRS Dur : 088 ms QT Int : 428 ms P-R-T Axes : 029 018 009 degrees QTc Int : 430 ms Poor data quality, interpretation may be adversely affected Normal sinus rhythm Normal ECG Confirmed by ZULEIKA MCKEON ([id number]), story editor BECKIE PEREZ ([id number]) on 06/30/2020 11:25:52 AM Referred By: Confirmed By:ZULEIKA MCKEON
== END 2020-06-29 17:36 | disposition home or self-care (01) ==
LOC: ERS 16:10 → 2SE 19:38
PROVIDERS: ADMIT Family Medicine; ATTEND Family Medicine
DX: R53.1 Weakness (principal); M19.90 Unspecified osteoarthritis, unspecified site; F32.9 Major depressive disorder, single episode, unspecified; E78.5 Hyperlipidemia, unspecified; E03.9 Hypothyroidism, unspecified; M85.88 Other specified disorders of bone density and structure, other site; M47.814 Spondylosis without myelopathy or radiculopathy, thoracic region; M47.816 Spondylosis without myelopathy or radiculopathy, lumbar region; G62.9 Polyneuropathy, unspecified; Z23 Encounter for immunization; Z86.73 Personal history of transient ischemic attack (TIA), and cerebral infarction without residual deficits; Z87.891 Personal history of nicotine dependence; Z79.82 Long term (current) use of aspirin; Z79.899 Other long term (current) drug therapy; Z88.8 Allergy status to other drugs, medicaments and biological substances; R29.898 Other symptoms and signs involving the musculoskeletal system
CPT/HCPCS: 70450; 71045; 72131; 80048; 80061; 81001; 82607; 82746; 83735; 84484; 85025; 85610; 85730; 90662; 93005; 93306; 93880; 97116; 97139 ×4; 99285; G0008; G0378 ×3; 36415; 80053; 84443; 90471

== ENCOUNTER 2020-11-06 09:48 | Outpatient (CLI) | payer MEDICARE, OTHER | END 2020-11-06 09:49 | disposition home or self-care (01) | LOC: PET 09:48 | PROVIDERS: ATTEND Psychiatry & Neurology Neurology | DX: G30.0 Alzheimer's disease with early onset (principal) | CPT/HCPCS: 78803; A9552 ==

== ENCOUNTER 2021-05-23 16:13 | Outpatient (CLI) | payer MEDICARE, OTHER | END 2021-05-23 16:14 | disposition home or self-care (01) | LOC: BICRAD 16:13 | PROVIDERS: ATTEND Specialist | DX: M48.54XA Collapsed vertebra, not elsewhere classified, thoracic region, initial encounter for fracture (principal); M47.814 Spondylosis without myelopathy or radiculopathy, thoracic region | CPT/HCPCS: 72072 ==

== ENCOUNTER 2021-05-31 12:04 | Emergency (ER) | payer MEDICARE, OTHER ==
[2021-05-31 13:02] LABS: #Eosinphils 0.2 thou/uL (0.0-0.7); #Lymphocytes 2.3 thou/uL (1.20-3.40); #Monocytes 0.6 thou/uL (0.11-0.59); #Neutrophils 1.6 thou/uL (1.40-6.50); %Basophils 0.5 % (0.0-1.0); %Eosinophils 4.1 % (0.0-10.0); %Lymphocytes 48.1 % (21.0-51.0); %Monocytes 13.5 % (0.0-10.0); %Neutrophils 33.8 % (42.0-75.0); Mean Corpuscular Hemoglobin 31.1 pg (27.0-31.0); Mean Corpuscular Volume 91.6 fL (78.0-98.0); Mean Platelet Volume 6.9 fL (7.4-10.4); Platelet Count 256 thou/uL (130-400); Red Blood Cell (RBC) Count 4.82 mill/uL (4.70-6.10); White Blood Cell (WBC) Count 4.7 thou/uL (4.8-10.8)
[2021-05-31] MEDS ORDERED: Lorazepam 2 MG/ML VIAL ONE (13:08)
[2021-05-31] MEDS ORDERED: Morphine 4 MG/ML VIAL ONE (13:08)
[2021-05-31] MEDS ORDERED: Hydrocodone-Acetamin 15 ML UDCUP ONE (13:08)
[2021-05-31] MEDS ORDERED: Ketorolac Tromethamine 30 MG/ML VIAL ONE ×2 (13:09→13:10)
[2021-05-31 13:21] LABS: ALT (SGPT) 41 U/L (8-55); AST (SGOT) 32 U/L (5-34); Albumin 3.9 g/dL (3.4-4.8); Alkaline Phosphatase 109 U/L (40-110); Anion Gap 9 mmol/L (10-20); BUN (Urea Nitrogen) 11 mg/dL (8.4-25.7); Bilirubin, Total 0.5 mg/dL (0.2-1.2); Calc. Creatinine Clearance 0 mL/min (70-130); Calcium 9.2 mg/dL (7.8-10.44); Carbon Dioxide 30 mmol/L (23-31); Chloride 103 mmol/L (98-107); Globulin 2.8 g/dL (2.4-3.5); Glucose 101 mg/dL (80-115); Potassium 4.3 mmol/L (3.5-5.1); Protein, Total 6.7 g/dL (5.8-8.1); Sodium 138 mmol/L (136-145)
== END 2021-05-31 16:09 | disposition home or self-care (01) ==
LOC: ERS 12:04
DX: M62.830 Muscle spasm of back (principal); Z79.82 Long term (current) use of aspirin; Z79.899 Other long term (current) drug therapy; Z86.73 Personal history of transient ischemic attack (TIA), and cerebral infarction without residual deficits
CPT/HCPCS: 36415; 72128; 72131; 80053; 85025; 96374; 96375; J1885; J2060; J2270

== ENCOUNTER 2021-07-04 09:07 | Outpatient (CLI) | payer MEDICARE, OTHER | END 2021-07-04 09:08 | disposition home or self-care (01) | LOC: CT 09:07 | PROVIDERS: ATTEND Urology | DX: R31.0 Gross hematuria (principal); N32.89 Other specified disorders of bladder | CPT/HCPCS: 74178; 82565 ==

== ENCOUNTER 2021-09-13 12:50 | Outpatient (CLI) | payer MEDICARE, OTHER ==
[2021-09-13 14:01] LABS: Anion Gap 14 mmol/L (10-20); BUN (Urea Nitrogen) 11 mg/dL (8.4-25.7); Calc. Creatinine Clearance 0 mL/min (70-130); Calcium 9.2 mg/dL (7.8-10.44); Carbon Dioxide 28 mmol/L (23-31); Chloride 105 mmol/L (98-107); Glucose 115 mg/dL (80-115); Sodium 142 mmol/L (136-145)
[2021-09-14 23:31] LABS: SARS-CoV-2 PCR by NAA DETECTED (NotDetected)
== END 2021-09-13 12:51 | disposition home or self-care (01) ==
LOC: LABBT 12:50
PROVIDERS: ATTEND Neurological Surgery
DX: U07.1 COVID-19 (principal); Z01.818 Encounter for other preprocedural examination; M54.14 Radiculopathy, thoracic region
CPT/HCPCS: 80048; 93005; U0003; U0005; 93010

== ENCOUNTER 2021-09-18 05:57 | Day surgery (SDC) | payer MEDICARE, OTHER ==
[2021-09-12 15:37] VITALS: BMI 26.6
[2021-09-18] MEDS ORDERED: Bupivacaine PF 0.5% 30 ML VIAL ONE (06:10)
[2021-09-18] MEDS ORDERED: EPINEPHrine 1 MG/ML AMP ONE (06:10)
[2021-09-18] MEDS ORDERED: Thrombin 5000 UNITS/5 ML VIAL ONE (06:10)
[2021-09-18] MEDS ORDERED: Fentanyl 250 MCG/5 ML VIAL ONE ×2 (06:27→09:31)
[2021-09-18] MEDS ORDERED: Dexmedetomidine 200 MCG/2 ML VIAL ONE (06:27)
[2021-09-18] MEDS ORDERED: Lidocaine 2% Jelly 5 ML TUBE ONE (06:28)
[2021-09-18] MEDS ORDERED: Ketorolac Tromethamine 30 MG/ML VIAL ONE (07:03)
[2021-09-18] MEDS ORDERED: Ondansetron PF 4 MG/2 ML Vial ONE (07:03)
[2021-09-18] MEDS ORDERED: GLYCOPYRROLATE/PF 0.2 MG/ML VIAL ONE (07:03)
[2021-09-18] MEDS ORDERED: ePHEDrine 50 MG/ML VIAL ONE (07:03)
[2021-09-18] MEDS ORDERED: PHENYLEPHRINE-NS 100 MCG/ML 10 ML SYRINGE ONE ×2 (07:03→08:27)
[2021-09-18] MEDS ORDERED: Rocuronium Bromide 10 MG/ML (10ML VIAL) ONE (07:03)
[2021-09-18] MEDS ORDERED: Lidocaine 1% PF 5 ML VIAL ONE (07:03)
[2021-09-18] MEDS ORDERED: Tamsulosin HCl 0.4 MG CAP ONE (09:47)
[2021-09-18] MEDS ORDERED: HYDROcodone/Acetaminophen 5/325 mg Tablet ONE (10:21)
[2021-09-18] MEDS ORDERED: ceFAZolin Sodium (SDC) 2 GM/100 ML BAG ONE (10:52)
== END 2021-09-18 12:25 | disposition home or self-care (01) ==
LOC: SDC 05:57
PROVIDERS: ATTEND Neurological Surgery
PROC: 01N80ZZ Release Thoracic Nerve, Open Approach (ICD-10-PCS; principal; 2021-09-18)
DX: M48.05 Spinal stenosis, thoracolumbar region (principal); M54.14 Radiculopathy, thoracic region; M54.15 Radiculopathy, thoracolumbar region; I10 Essential (primary) hypertension; K21.9 Gastro-esophageal reflux disease without esophagitis; Z86.73 Personal history of transient ischemic attack (TIA), and cerebral infarction without residual deficits; Z79.82 Long term (current) use of aspirin; Z79.84 Long term (current) use of oral hypoglycemic drugs; Z79.899 Other long term (current) drug therapy; Z88.8 Allergy status to other drugs, medicaments and biological substances; Z98.1 Arthrodesis status
CPT/HCPCS: 76000; J0171; J0690; J1885; J2405; J3010; J3490; S0020